=== PATIENT | female | born 1975 | race Caucasian/White ===

== ENCOUNTER → 2016-08-01 | Outpatient (REF) | payer OTHER | LOC: M LAB REF 12:58 | PROVIDERS: ATTEND Obstetrics & Gynecology | DX: Z11.3 Encounter for screening for infections with a predominantly sexual mode of transmission (principal) ==

== ENCOUNTER → 2016-09-01 | Day surgery (SDC) | payer BC, OTHER ==
[~2016-09-01] VITALS: Ht 154.9 cm; Wt 88.5 kg
[~2016-09-01] MED LIST: BUPIVACAINE HCL 0.25% 10 ML VIAL As Ordered ONE; DEPA500T2 PO; GLYCOPYRROLATE INJ 0.2 MG/ML 2 ML VIAL As Ordered ONE; KETOROLAC 60 MG/2 ML VIAL (J1885) As Ordered ONE; LIDOCAINE 2% INJ 100 MG/5 ML SDV (FOR ANES.) As Ordered ONE; LR 1,000 ML IV ONE; LR 1,000 ML IV SCH; METOCLOPRAMIDE INJ 10MG/2ML VIAL (J2765) As Ordered ONE; MIDAZOLAM INJ 2 MG/2 ML VIAL (J2250) As Ordered ONE; NEOSTIGMINE 1MG/ML 5 ML SYRINGE (J2710) As Ordered ONE; OMEP40CA2 PO; ONDANSETRON 4MG/2ML VIAL (J2405) As Ordered ONE; ONDANSETRON 4MG/2ML VIAL (J2405) IV PRN; PROPOFOL 500 MG/50 ML VIAL As Ordered ONE; PROZ40CA PO; ROCURONIUM BROMIDE 50 MG/5 ML VIAL As Ordered ONE; XANA0.25 PO; dexameTHASONE 4 MG/ML 1ML VIAL (J1100) As Ordered ONE; fentaNYL 100 MCG/2 ML INJECTION (J3010) As Ordered ONE; fentaNYL 100 MCG/2 ML INJECTION (J3010) IV PRN
[2016-09-01 08:55] LABS: MEAN CORPUSCULAR HEMOGLOBIN 29.6 pg (27.0-33.0); MEAN CORPUSCULAR VOLUME 87.1 fl (80.0-96.0); RED CELL DISTRIBUTION WIDTH 14.1 % (11.5-14.5)
[2016-09-01 09:07] LABS: CONTROL LINE HCG INT CTR LINE PRESENT
[2016-09-01] MEDS: SILVER NITRATE APPLICATOR As Ordered ONE ×2 (10:45→11:41)
[2016-09-01 14:05] VITALS: BP 138/83
--- NOTE | 2016-09-03 09:18 | RO ---
DATE OF PROCEDURE: 09/01/2016 PREOPERATIVE DIAGNOSIS: Satisfied parity. POSTOPERATIVE DIAGNOSIS: Satisfied parity. PROCEDURE PERFORMED: Laparoscopic bilateral salpingectomy. SURGEON: Dr. Indio Turcios DO FACOG PROMOTIONAL MARKETING ANALYST: AARTI Torres III ANESTHESIA: General endotracheal. SPECIMENS SENT TO PATHOLOGY: Right and left fallopian tubes. ESTIMATED BLOOD LOSS: Less than 5 mL. FLUIDS REPLACED: 1700 mL lactated Ringers. DRAINS: Buckner catheter. URINE OUTPUT: 200 mL. COMPLICATIONS: None. PREOPERATIVE ANTIBIOTICS: None indicated. INTRAOPERATIVE FINDINGS: 1. 2 cm right ovarian cyst, possibly hemorrhagic. 2. 2 cm fundal subserosal leiomyoma. 3. Normal appearing left adnexa. 4. Normal appearing right and left ovaries. INDICATION: The patient is a 40-year-old who has expressed 100% satisfied parity and requesting of permanent tubal sterilization. We reviewed all the options of control to include long-acting reversible contraception. She still wants to proceed with permanent sterilization. She has elected to proceed with laparoscopic bilateral salpingectomy after reviewing surgical options. PROCEDURE: The patient was counseled and consented on the risks, benefits, indications and alternatives to the procedure. Informed consent was obtained. She was taken to the operating room with an IV running and placed on the operating table in the dorsal supine position. General anesthesia was administered and the airway secured without any difficulty. She was then placed in the low lithotomy position. She was prepared and draped in the normal sterile fashion. A time-out was performed per protocol. Buckner catheter was placed under sterile conditions. A sterile speculum was placed in the vagina with good visualization of the cervix. The anterior lip of the cervix was grasped with a single-tooth tenaculum and downward traction was applied. The [facility] uterine manipulator was placed in typical fashion. The sterile speculum was removed. A glove switch was performed. Attention was turned to the abdomen. Approximately 5 mL of 0.25% Marcaine were injected into the umbilicus. An 8 mm umbilical incision was made with the 11 blade. Through this incision, a Veress needle was placed into the intraperitoneal cavity. Intraperitoneal placement was confirmed with ease of flow of normal saline, no return on aspiration and a positive drop test. The opening pressure was 3 mmHg. The abdomen was then insufflated with 2 liters of gas. The Veress needle was removed. The size 5 mm Feura Bush laparoscopic trocar was placed throught the 8mm incision into the intraperitoneal cavity under direct technique and intraperitoneal placement was confirmed. No additional bleeding or incidental injury was noted. The patient was then placed in Trendelenburg. On the left lower abdomen, a 5 mm incision was made. Through this 5 mm incision, a 5 mm Feura Bush laparoscopic trocar was placed under direct laparoscopic visualization. Once this was performed, the 5 mm umbilical cannula was removed. This was replaced with an 8 mm Feura Bush trocar/cannula and this was placed under direct laparoscopic visualization by placing the 5 mm scope in the left side port. Once these two ports were created, a third port was placed approximately 6-7 cm above the left lower abdomen incision. Another 5 mm incision was made and a 5 mm Feura Bush trocar was placed under direct laparoscopic visualization. No incidental injury or bleeding was noted. With the 0 scope now in the umbilical cannula, attention was turned to performing the bilateral salpingectomy. The right fallopian tube was followed out to the fimbriated end and grasped with an atraumatic grasper and elevated. The 5 mm LigaSure device was used to sequentially clamp, coagulate and transect the right underlying mesosalpinx/broad ligament to the level of the isthmus. At the level isthmus, the fallopian tube was clamped, coagulated and transected with the LigaSure device. The right fallopian tube was placed into the posterior cul-de-sac. Attention was turned to the left fallopian tube. The left fallopian tube was grasped with an atraumatic grasper at the fimbriated end and elevated. The underlying left mesosalpinx/left broad ligament was sequentially clamped, coagulated and transected until the level of the isthmus was reached. At the level of the isthmus, the fallopian tube was clamped, coagulated and transected, thus amputating the left fallopian tube. The left fallopian tube was placed in the posterior cul-de-sac. The 5 mm 0 degree scope was placed in the left sided port. The atraumatic grasper was placed in the 8 mm cannula. The right and left fallopian tubes were removed through the 8 mm cannula. Both fallopian tubes were sent to pathology for permanent section. Excellent hemostasis was noted throughout the abdomen and pelvis. The gas was released from the abdomen. As the gas was being released from the abdomen, no additional bleeding was noted. The cannulas were removed. The skin incisions were closed with #4-0 Monocryl in subcuticular fashion and reinforced with Dermabond. All instruments from the vagina were removed. The Buckner catheter was removed. Sponge, lap, needle and sponge counts were correct. The patient tolerated the entire procedure well. She was transferred to the postanesthesia care unit (PACU) in good and stable condition. KOURTNEY
== END | disposition home or self-care (01) ==
LOC: M SDC 08:05
PROVIDERS: ATTEND Obstetrics & Gynecology
DX: Z30.2 Encounter for sterilization (principal); N83.201 Unspecified ovarian cyst, right side; D25.2 Subserosal leiomyoma of uterus; K21.9 Gastro-esophageal reflux disease without esophagitis; F41.9 Anxiety disorder, unspecified; F32.9 Major depressive disorder, single episode, unspecified; G43.909 Migraine, unspecified, not intractable, without status migrainosus; F17.290 Nicotine dependence, other tobacco product, uncomplicated; Z79.899 Other long term (current) drug therapy; Z88.8 Allergy status to other drugs, medicaments and biological substances
CPT/HCPCS: 36415; 58661; 84703; 85027; 86850; 86900; 86901; 88302; J1100; J1885; J2250; J2405; J2710; J2765; J3010

== ENCOUNTER → 2017-09-03 | Outpatient (CLI) | payer BC, OTHER | LOC: M WUC 09:17 | DX: M79.661 Pain in right lower leg (principal) | CPT/HCPCS: 73590 ==

== ENCOUNTER → 2017-11-08 | Outpatient (REF) | payer BC, OTHER ==
[2017-11-09 11:27] LABS: CHLAMYDIA DNA AMPLIFICATION NEGATIVE (NEGATIVE); GC DNA AMPLIFICATION NEGATIVE (NEGATIVE)
[2017-11-13 14:20] LABS: HPV LOW VOL RFLX Negative (Negative)
== END ==
LOC: M LAB REF 13:26
DX: Z11.3 Encounter for screening for infections with a predominantly sexual mode of transmission (principal)

== ENCOUNTER 2017-12-13 22:22 | Inpatient (IN) | payer OTHER ==
[2017-12-13 22:55] LABS: BASO % 0.3 % (0.0-1.0); EOS # 0.1 10^3/uL (0.0-0.50); EOS % 0.6 % (0.0-3.0); HEMATOCRIT 38.6 % (36.0-47.0); HEMOGLOBIN 13.2 g/dl (12.0-15.5); IMMATURE GRANULOCYTE % 0.1 % (0-3.0); LYMPH # 2.7 10^3/uL (1.5-4.5); LYMPH % 34.5 % (24.0-44.0); MEAN CORPUSCULAR HEMOGLOBIN 28.9 pg (27.0-33.0); MEAN CORPUSCULAR HGB CONC 34.2 g/dl (32.0-36.5); MEAN CORPUSCULAR VOLUME 84.5 fl (80.0-96.0); MONO # 0.6 10^3/uL (0.0-0.8); MONO % 7.6 % (0.0-5.0); NEUTROPHILS # 4.4 10^3/uL (1.8-7.7); NEUTROPHILS % 56.9 % (36.0-66.0); PLATELET COUNT, AUTOMATED 230 10^3/uL (150-450); RED BLOOD COUNT 4.57 10^6/uL (4.00-5.40); RED CELL DISTRIBUTION WIDTH 13.7 % (11.5-14.5); WHITE BLOOD COUNT 7.8 10^3/uL (4.0-10.0)
[2017-12-13 23:21] LABS: ALBUMIN 3.6 GM/DL (3.2-5.2); ALBUMIN/GLOBULIN RATIO 0.78 (1.00-1.93); ALKALINE PHOSPHATASE 69 U/L (45-117); ALT/SGPT 27 U/L (12-78); ANION GAP 9 MEQ/L (8-16); AST/SGOT 17 U/L (7-37); BILIRUBIN,DIRECT < 0.1 MG/DL (0.0-0.2); BILIRUBIN,TOTAL 0.2 MG/DL (0.2-1.0); BLOOD UREA NITROGEN 19 MG/DL (7-18); CALCIUM LEVEL 8.4 MG/DL (8.5-10.1); CARBON DIOXIDE LEVEL 24 MEQ/L (21-32); CHLORIDE LEVEL 108 MEQ/L (98-107); CPK CREATINE PHOSPHOKINASE 68 U/L (26-192); CREATININE FOR GFR 0.92 MG/DL (0.55-1.30); ETHYL ALCOHOL (ETHANOL) 0.004 % (0.000-0.010); GLOMERULAR FILTRATION RATE > 60.0 (>58); GLUCOSE, FASTING 86 MG/DL (70-100); POTASSIUM SERUM 3.7 MEQ/L (3.5-5.1); SALICYLATE LEVEL 4.5 MG/DL (5.0-30.0); SODIUM LEVEL 141 MEQ/L (136-145); TOTAL PROTEIN 8.2 GM/DL (6.4-8.2)
[2017-12-13 23:22] LABS: ACETAMINOPHEN LEVEL < 2.0 UG/ML (10.0-30.0)
[2017-12-14 05:17] LABS: AMPHETAMINES LEVEL URINE NEGATIVE (NEGATIVE); BARBITURATES URINE NEGATIVE (NEGATIVE); BENZODIAZEPINES URINE POSITIVE (NEGATIVE); CANNABINOIDS URINE POSITIVE (NEGATIVE); COCAINE METABOLITE URINE NEGATIVE (NEGATIVE); METHADONE URINE NEGATIVE (NEGATIVE); OPIATES URINE NEGATIVE (NEGATIVE); PHENCYCLIDINE URINE NEGATIVE (NEGATIVE)
[2017-12-14] MEDS ORDERED: MOM 30ML SUSPENSION UDC PO (06:15)
[2017-12-14] MEDS ORDERED: MAALOX 30 ML SUSP *UDC PO (06:15)
[2017-12-14] MEDS ORDERED: ACETAMINOPHEN TAB 650MG DOSE (2X325MG) PO (06:15)
[2017-12-14 11:24] LABS: CONTROL LINE HCG INT CTR LINE PRESENT; HCG, SERUM QUALITATIVE NEGATIVE (NEGATIVE)
[2017-12-14] MEDS: FLUoxetine 20 MG CAP PO ×2 (12:26→20:45)
[2017-12-14] MEDS: DIVALPROEX 500MG *ER* TAB PO (12:26)
[2017-12-14 14:01] LABS: VALPROIC ACID (DEPAKOTE) 37.9 UG/ML (50.0-100.0)
[2017-12-14] MEDS: OMEPRAZOLE 20 MG CAP PO (20:45)
[2017-12-14] MEDS: traZODone 50 MG TAB PO (20:45)
[2017-12-15] MEDS: FLUoxetine 20 MG CAP PO (08:01)
[2017-12-15] MEDS: DIVALPROEX 500MG *ER* TAB PO ×2 (08:01→21:16)
[2017-12-15] MEDS: OMEPRAZOLE 20 MG CAP PO (21:16)
[2017-12-15] MEDS: traZODone 50 MG TAB PO (21:16)
[2017-12-16 08:02] LABS: VALPROIC ACID (DEPAKOTE) 51.7 UG/ML (50.0-100.0)
[2017-12-16] MEDS: FLUoxetine 20 MG CAP PO (08:13)
[2017-12-16] MEDS: traZODone 50 MG TAB PO (21:50)
[2017-12-16] MEDS: OMEPRAZOLE 20 MG CAP PO (21:50)
[2017-12-16] MEDS: DIVALPROEX 500MG *ER* TAB PO (21:50)
[2017-12-17 07:29] LABS: VALPROIC ACID (DEPAKOTE) 36.5 UG/ML (50.0-100.0)
[2017-12-17] MEDS: FLUoxetine 20 MG CAP PO (08:00)
[2017-12-17] MEDS ORDERED: PILL CRUSHER/CUTTER 1 EACH XX (13:45)
[2017-12-17] MEDS: RIZATRIPTAN BENZOATE 10 MG TAB PO (14:34)
[2017-12-17] MEDS: OMEPRAZOLE 20 MG CAP PO (20:55)
[2017-12-17] MEDS: DIVALPROEX 500MG *ER* TAB PO (20:55)
[2017-12-17] MEDS: traZODone 50 MG TAB PO (22:42)
[2017-12-18] MEDS: FLUoxetine 20 MG CAP PO (08:03)
[2017-12-18] MEDS: RIZATRIPTAN BENZOATE 10 MG TAB PO ×2 (08:04→11:02)
== END 2017-12-18 14:10 | disposition home or self-care (01) | DRG 885 ==
LOC: M ED INP 12-14 06:08 → M ED 22:22 → M PSY 12-14 09:05
DX: F31.30 Bipolar disorder, current episode depressed, mild or moderate severity, unspecified (principal); Z91.5 Personal history of self-harm; Z79.899 Other long term (current) drug therapy; Z88.8 Allergy status to other drugs, medicaments and biological substances; K21.9 Gastro-esophageal reflux disease without esophagitis; Z90.49 Acquired absence of other specified parts of digestive tract; Z98.51 Tubal ligation status; F17.210 Nicotine dependence, cigarettes, uncomplicated

== ENCOUNTER → 2018-07-31 | Outpatient (CLI) | payer BC, OTHER ==
[~2018-07-31] MED LIST changes: +ALPR1TAB3 PO; -BUPIVACAINE HCL 0.25% 10 ML VIAL As Ordered ONE; +EXCE38TA PO; +FLUO20CA19 PO; +FLUO20TA28 PO; -GLYCOPYRROLATE INJ 0.2 MG/ML 2 ML VIAL As Ordered ONE; -KETOROLAC 60 MG/2 ML VIAL (J1885) As Ordered ONE; -LIDOCAINE 2% INJ 100 MG/5 ML SDV (FOR ANES.) As Ordered ONE; -LR 1,000 ML IV ONE; -LR 1,000 ML IV SCH; -METOCLOPRAMIDE INJ 10MG/2ML VIAL (J2765) As Ordered ONE; -MIDAZOLAM INJ 2 MG/2 ML VIAL (J2250) As Ordered ONE; -NEOSTIGMINE 1MG/ML 5 ML SYRINGE (J2710) As Ordered ONE; -ONDANSETRON 4MG/2ML VIAL (J2405) As Ordered ONE; -ONDANSETRON 4MG/2ML VIAL (J2405) IV PRN; -PROPOFOL 500 MG/50 ML VIAL As Ordered ONE; -ROCURONIUM BROMIDE 50 MG/5 ML VIAL As Ordered ONE; -dexameTHASONE 4 MG/ML 1ML VIAL (J1100) As Ordered ONE; -fentaNYL 100 MCG/2 ML INJECTION (J3010) As Ordered ONE; -fentaNYL 100 MCG/2 ML INJECTION (J3010) IV PRN
--- NOTE | 2018-08-01 06:23 | REP ---
Clinical: Hirsutism. Technique: Transabdominal pelvic ultrasound followed by transvaginal examination for better evaluation of the endometrium and adnexa. Findings: Bladder is unremarkable and measures 12.7 x 7.3 x 9.7 cm . Normal anteverted uterus measures 8.5 x 4.4 x 4.8 cm . The endometrial complex measures 9.5 mm thickness. No discrete uterine or endometrial abnormalities are appreciated. Bilateral ovaries are normal in appearance. Right ovary measures 2.4 x 1.8 x 2.4 cm ; Left ovary measures 3.4 x 2.2 x 2.9 cm. No pelvic fluid or adnexal mass lesion . Impression: 1. Normal pelvic ultrasound. Electronically Signed by Braulio Price MD 08/01/2018 06:15 A
== END ==
LOC: M RAD 12:03
PROVIDERS: ATTEND Family Medicine
DX: L68.0 Hirsutism (principal)

== ENCOUNTER → 2018-10-30 | Outpatient (CLI) | payer BC, OTHER ==
[~2018-10-30] MED LIST changes: +ESCI10TA2 PO; +HYDR200T3 PO; +MAGN1CAP PO; +MELA10TA6 PO; +TOPI100T9 PO; +TOPI50TA9 PO
--- NOTE | 2018-10-30 22:36 | REP ---
Clinical: Lower back pain . Technique: AP, lateral, flexion/extension, bilateral oblique, and coned-down views. Findings: Alignment and lordosis is maintained. The vertebral bodies including transverse process and spinous processes are intact and normal. There is no evidence for acute fracture / compression injury or subluxation. No evidence for spondylolysis or spondylolisthesis. No significant degenerative change is noted. Impression: Normal lumbosacral spine radiograph series. Electronically Signed by Braulio Price MD 10/30/2018 10:28 P
== END ==
LOC: M ADAMS 09:29
PROVIDERS: ATTEND Family Medicine
DX: M54.5 Low back pain (principal)

== ENCOUNTER → 2020-03-09 | Outpatient (CLI) | payer BC ==
[~2020-03-09] MED LIST changes: -FLUO20CA19 PO; +FLUO20CA22 PO; -OMEP40CA2 PO; +OMEP40CA97 PO
--- NOTE | 2020-03-10 04:45 | REP ---
INDICATION: N93.9 AUB COMPARISON: 07/31/2018 TECHNIQUE: Transabdominal pelvic ultrasound followed by transvaginal examination for better evaluation of the endometrium and adnexa with color evaluation of the ovaries. FINDINGS: Bladder is unremarkable and measures 13.1 x 5.7 x 8.9 cm. Normal anteverted uterus measures 8.7 x 4.2 x 5.0 cm. The endometrial complex measures 9.8 mm thickness. No discrete uterine or endometrial abnormalities are appreciated. Bilateral ovaries are normal in vascularity without evidence for torsion. Right ovary measures 5.8 x 3.3 x 3.1 cm and includes 3.1 and 3.4 cm simple appearing cysts. Left ovary measures 3.2 x 2.1 x 2.0 cm and includes 1.8 cm simple appearing cyst. No pelvic fluid or adnexal mass lesion. IMPRESSION: Essentially normal appearance to the uterus. Ovarian cysts appear simple/benign as described above. <Electronically signed by Braulio Price > 03/10/20 0446
== END ==
LOC: M WHC 10:59
PROVIDERS: ATTEND Obstetrics & Gynecology
DX: N93.9 Abnormal uterine and vaginal bleeding, unspecified (principal); N83.201 Unspecified ovarian cyst, right side; N83.202 Unspecified ovarian cyst, left side

== ENCOUNTER → 2020-04-30 | Outpatient (CLI) | payer BC | LOC: M LABSMTC 09:39 | PROVIDERS: ATTEND Anesthesiology | DX: Z01.812 Encounter for preprocedural laboratory examination (principal); Z20.822 Contact with and (suspected) exposure to COVID-19 ==

== ENCOUNTER → 2020-04-30 | Outpatient (REF) | payer OTHER ==
[~2020-04-30] MED LIST changes: +DOK1CAP7 PO; +IBUP80TA PO; +MAXA10TA14 PO; +PERCOCET PO
== END ==
LOC: M SFHCWAGY 17:06
PROVIDERS: ATTEND Obstetrics & Gynecology
DX: N93.9 Abnormal uterine and vaginal bleeding, unspecified (principal)

== ENCOUNTER → 2020-05-03 | Outpatient (CLI) | payer BC, OTHER ==
[~2020-05-03] MED LIST changes: +ESCI10TA16 PO; -ESCI10TA2 PO
--- NOTE | 2020-05-03 18:46 | ECGEPIP ---
[facility] [place] Test Date: 2020-05-03 Pat Name: FERMÍN MENDOZA Department: Room: - Gender: Female Owner/Photographer: JENNIFER : 1975 Requested By: Luke Mccollum Order Number: [id number] Reading MD: Alexander Laurent Measurements Intervals [place] Rate: 70 P: 55 AL: 162 QRS: 70 QRSD: 94 T: 44 QT: 396 QTc: 429 Interpretive Statements SINUS RHYTHM COMPARED TO 12/14/17 POOR R WAVE PROGRESSION IS NO LONGER PRESENT - VS DUE TO LEAD P PLACEMENT Electronically Signed on 05-03-2020 18:46:22 EST by Alexander Laurent
== END ==
LOC: M EKG 10:40
PROVIDERS: ATTEND Anesthesiology
DX: Z01.818 Encounter for other preprocedural examination (principal)

== ENCOUNTER 2020-05-05 07:52 | Day surgery (SDC) | payer BC, OTHER ==
[2020-05-05] VITALS (8 sets, daily range): BP systolic 109–166; BP diastolic 68–101
[~2020-05-05] VITALS: Ht 154.9 cm; Wt 96.8 kg
[~2020-05-05 07:52] MED LIST changes: -DOK1CAP7 PO; -IBUP80TA PO; +LIDOCAINE 1% MDV 20ML VIAL SQ PRN; +LR 1,000 ML IV ONE; -MAXA10TA14 PO; -PERCOCET PO; +ceFAZolin SOD 2 GM in IV 1 EA IV ONE
[2020-05-05] MEDS ORDERED: fentaNYL 100 MCG/2 ML INJECTION (J3010) As Ordered ONE (07:55)
--- OUTSIDE RECORDS SUMMARY | 2020-05-05 07:56 | CCD ---
Author Author [facility] em[facility] Organization [facility] ems Address Unknown Phone Unavailable Care Team Providers Care Librarian Name Role Phone Ne Tee Unavailable PROBLEMS Type Condition ICD9-CM Code [id number] Code Onset Dates Condition S tatus SNOMED Code Notes Problem Migraine with aura and without status migrainosu s, not intractable G43.109 Active 9126601 Problem Cigarette nicotine dependence without complication F17.210 Active 59565086 Problem Cutaneous lupus erythematosus L93.2 Active 71 42780 Problem Subacute cutaneous lupus erythematosus L93.1 A ctive 324226305 Problem GERD without esophagitis K21.9 Active 1911529 05 Problem Lupus M32.9 Active 306811450 Problem Mixed hyperlipidemia E78.2 Active 002454011 Problem Abnormal uterine bleeding (AUB) N93.9 Active 16357191404352 Problem Bipolar affective disorder, remission status unspecified F31.9 Active 56659667 Problem GERD with esophagitis K21.0 Active 119396694 Problem Systemic lupus erythematosus , unspecified SLE type, unspecified organ involvement status M32.9 Active 01746325 Problem Fibromyalgia M79.7 Active 722633864 Problem Other chronic pain G89.29 Active 27208950 ALLERGIES Allergen (clinical drug ingredient) Drug/Non Drug Allergy do cumented on EMR Reaction Allergy Type Onset Date Status Lamisil Hives Drug Allergy Active ENCOUNTERS from 1975 to 2020-03-29 Encounter Location Date Provider Diagnosis [facility] [address] [place] [address] Mar, Ne Vandana-Tartell IMMUNIZATIONS Vaccine Route Administration Date Status TDAP 0.5mL (Boostrix) IM Intramuscular Apr 10, 2018 Administe red Influenza (6mo & up) Fluzone IM Intramuscular Feb 20, 2018 Ad ministered SOCIAL HISTORY Tobacco Use: Social History Observation Description Date Details (start date - stop date) Former Smoker Sex Assigned At : Social History Observation Description Sex Assigned At Unknown Education: Question Answer Notes Level of Education: Not Finished College Audit Question Answer Notes Total Score: 0 Interpretation: Alcohol Education Language: Question Answer Notes Languages spoken: Micronesian Latter-Day: Question Answer Notes Latter-Day 21 Hoahaoism Drug and Alcohol Question Answer Notes Total Score: 0 Interpretation: No problems reported Tobacco Use: Question Answer Notes Are you a: former smoker How long has it been since you last smoked? < 1 month REASON FOR REFERRAL No Information VITAL SIGNS No information MEDICATIONS Medication SIG (Take, Route, Frequency, Duration) Notes Start Da te End Date Status Melatonin 3 MG 3 capsule at bedtime as needed Orally Once a day Active Rizatriptan Benzoate 5 MG 1 tab po Oral daily prn headache for 30 Active Melatonin 3 MG 3 tabs Orally Daily A ctive Hydroxychloroquine Sulfate 200 MG 1 tab Oral twice daily Active Omeprazole 20 MG 1 cap Oral Daily for 90 Active Escitalopram Oxalate 10 MG 1 1/2 tabs Oral Once a day Active Vitamin D 1000 UNIT 1 tablet Orally Once a day Not-Taking Topiramate 100 MG 1 Am,1 PM Orally twice daily Active Magnesium 400 MG as directed Orally Active PROCEDURES No Information RESULTS No Results REASON FOR VISIT omeprazole - 90 day MEDICAL (GENERAL) HISTORY Type Description Date Medical History migraines Medical History GERD Medical History vitamin D deficiency Medical History Raynaud's phenomenon Medical History Depression/ Anxiety Medical History Lupus Medical History PCOS Medical History fibromyalgia Surgical History gallbladder 2014 Surgical History tubal 2017 Hospitalization History surgery Hospitalization History [facility] 8-18 Goals Section No Information Health Concerns No Information MEDICAL EQUIPMENT No Information MENTAL STATUS No Information FUNCTIONAL STATUS No Information ASSESSMENTS No Information PLAN OF TREATMENT Medication Medication Name Sig Start Date Stop Date Omeprazole 20 MG 1 cap Oral Daily for 90 Next Appt Details Provider Name:Ne Tee, 2020-04-07 03:30:00 PM, [address], [phone], Provider Name:Indio Turcios, 01:20:00 PM, [address] [place], [address], Provider Name:Indio Turcios, 07:30:00 AM, [address] [place] [address], [phone], Provider Name:Indio Turcios, 11:20:00 AM, [address] [place] [address], [phone], Provider Name:Indio Turcios, 11:20:00 AM, [address] [place] [address], [phone], Insurance Providers Payer Name Payer Address Payer Phone Insured Name Patient Relati onship to Insured Coverage Start Date Coverage End Date [facility] [address] [facility] [id number] FERMÍN MENDOZA [id number]
--- OUTSIDE RECORDS SUMMARY | 2020-05-05 07:56 | CCD ---
Author Author [facility] Organization [facility] Address Unknown Phone Unavailable Care Team Providers Care Farm Laborer Name Role Phone Ne Tee Unavailable PROBLEMS Type Condition ICD9-CM Code [id number] Code Onset Dates Condition S tatus SNOMED Code Notes Problem Cigarette nicotine dependence without complication F17.210 Active 57489631 Problem Migraine with aura and without status migrainosu s, not intractable G43.109 Active 1155919 Problem Mixed hyperlipidemia E78.2 Active 451763537 Problem Bipolar affective disorder, remission status unspecified F31.9 Active 26395036 Problem GERD without esophagitis K21.9 Active 9919692 05 Problem GERD with esophagitis K21.0 Active 111838366 Problem Fibromyalgia M79.7 Active 256204303 Problem Cigarette nicotine dependence in remission F17.211 Active 149691299 Problem Cutaneous lupus erythematosus L93.2 Active 71 18321 Problem Vitamin D deficiency E55.9 Active 58916494 Problem Subacute cutaneous lupus erythematosus L93.1 A ctive 608858002 Problem Other chronic pain G89.29 Active 19827435 Problem Systemic lupus erythematosus , unspecified SLE type, unspecified organ involvement status M32.9 Active 02744623 Problem Lupus M32.9 Active 768127362 Problem Abnormal uterine bleeding (AUB) N93.9 Active 59329172171926 ALLERGIES Allergen (clinical drug ingredient) Drug/Non Drug Allergy do cumented on EMR Reaction Allergy Type Onset Date Status Lamisil Hives Drug Allergy Active ENCOUNTERS from 1975 to 2020-04-30 Encounter Location Date Provider Diagnosis [facility] [address] [place] [address] Apr, Ne Vandana-Tartell IMMUNIZATIONS Vaccine Route Administration Date [...] Education Language: Question Answer Notes Languages spoken: Hong Konger Spiritism: Question Answer Notes Spiritism 21 Alevism Drug and Alcohol Question Answer Notes Total Score: 0 Interpretation: No problems reported Tobacco Use: Question Answer Notes Are you a: former smoker How long has it been since you last smoked? < 1 month REASON FOR REFERRAL No Information VITAL SIGNS No information MEDICATIONS Medication SIG (Take, Route, Frequency, Duration) Notes Start Da te End Date Status Magnesium 400 MG as directed Orally Active Topiramate 100 MG 1 Am,1 PM Orally twice daily Active Omeprazole 20 MG 1 cap Oral Daily for 90 Active Rizatriptan Benzoate 5 MG 1 tab po Oral daily prn headache for 30 Active Hydroxychloroquine Sulfate 200 MG 1 tab Oral twice daily for 90 days Active Vitamin D 1000 UNIT 1 tablet Orally Once a day for 90 days Active Escitalopram Oxalate 10 MG 1 1/2 tabs Oral Once a day Active Melatonin 3 MG 3 tabs Orally Daily A ctive PROCEDURES No Information RESULTS No Results REASON FOR VISIT stop med before surgery? MEDICAL (GENERAL) HISTORY Type Description Date Medical History migraines Medical History GERD Medical History vitamin D deficiency Medical History Raynaud's phenomenon Medical History Depression/ Anxiety Medical History Lupus Medical History PCOS Medical History fibromyalgia Surgical History gallbladder 2014 Surgical History tubal 2017 Hospitalization History surgery Hospitalization History [facility] 8-18 Goals Section No Information Health Concerns No Information MEDICAL EQUIPMENT No Information MENTAL STATUS No Information FUNCTIONAL STATUS No Information ASSESSMENTS No Information PLAN OF TREATMENT Medication Medication Name Sig Start Date Stop Date Hydroxychloroquine Sulfate 200 MG 1 tab Oral twice daily for 90 days Vitamin D 1000 UNIT 1 tablet Orally Once a day for 90 days Omeprazole 20 MG 1 cap Oral Daily for 90 Next Appt Details Provider Name:Indio Turcios, 2020-04- 01:20:00 PM, [address] [place], [address], Provider Name:Indio Turcios, 09:30:00 AM, [address] [place] [address], [address], Provider Name:Indio Turcios, 11:20:00 AM, [address] [place] [address], [phone], Provider Name:Indio Turcios, 11:20:00 AM, [address] [place] [address], [phone], Insurance Providers Payer Name Payer Address Payer Phone Insured Name Patient Relati onship to Insured Coverage Start Date Coverage End Date [facility] [address] [facility] [id number] FERMÍN MENDOZA [id number]
--- OUTSIDE RECORDS SUMMARY | 2020-05-05 07:56 | CCD ---
Author Author [facility] Organization [facility] Address Unknown Phone Unavailable Care Team Providers Care Fabric Coating Supervisor Name Role Phone Ne Tee Unavailable PROBLEMS Type Condition ICD9-CM Code [id number] Code Onset Dates Condition S tatus SNOMED Code Notes Problem Cigarette nicotine dependence without complication F17.210 Active 15971000 Problem Migraine with aura and without status migrainosu s, not intractable G43.109 Active 1536082 Problem Mixed hyperlipidemia E78.2 Active 074702168 Problem Bipolar affective disorder, remission status unspecified F31.9 Active 16091955 Problem GERD without esophagitis K21.9 Active 7166636 05 Problem GERD with esophagitis K21.0 Active 212032505 Problem Fibromyalgia M79.7 Active 474625533 Problem Cigarette nicotine dependence in remission F17.211 Active 772055216 Problem Cutaneous lupus erythematosus L93.2 Active 71 14737 Problem Vitamin D deficiency E55.9 Active 18302000 Problem Subacute cutaneous lupus erythematosus L93.1 A ctive 346518622 Problem Other chronic pain G89.29 Active 35273758 Problem Systemic lupus erythematosus , unspecified SLE type, unspecified organ involvement status M32.9 Active 50798243 Problem Lupus M32.9 Active 326346398 Problem Abnormal uterine bleeding (AUB) N93.9 Active 46419766015154 ALLERGIES Allergen (clinical drug ingredient) Drug/Non Drug Allergy do cumented on EMR Reaction Allergy Type Onset Date Status Lamisil Hives Drug Allergy Active ENCOUNTERS from 1975 to 2020-04-26 Encounter Location Date Provider Diagnosis [facility] [address] [place] [address] 16 Dec, 20 20 Ne Vandana-Tartell Vitamin D deficiency E55.9 ; Cutaneous l upus erythematosus L93.2 and Cigarette nicotine dependence in remission F17.211 IMMUNIZATIONS Vaccine Route Administration Date Status TDAP [...] Education Language: Question Answer Notes Languages spoken: Icelandic Restorationism: Question Answer Notes Restorationism 21 Sabianist Drug and Alcohol Question Answer Notes Total [...] Information RESULTS No Results REASON FOR VISIT 6 month MEDICAL (GENERAL) HISTORY Type Description Date Medical History migraines Medical History GERD Medical History vitamin D deficiency Medical History Raynaud's phenomenon Medical History Depression/ Anxiety Medical History Lupus Medical History PCOS Medical History fibromyalgia Surgical History gallbladder 2014 Surgical History tubal 2017 Hospitalization History surgery Hospitalization History [facility] 8-18 Goals Section No Information Health Concerns No Information MEDICAL EQUIPMENT No Information MENTAL STATUS No Information FUNCTIONAL STATUS No Information ASSESSMENTS Encounter Date Diagnosis Assessment Notes Treatment Notes Treatm ent Clinical Notes Mar, Vitamin D deficiency (ICD-10 - E55.9) Vitamin D refilled. Mar, Cutaneous lupus erythematosus (ICD-10 - L93.2) We will cover her Rx until she sees dermatology. Mar, Cigarette nicotine dependence in remission (ICD- 10 - F17.211) Congratulated her on smoking cessation PLAN OF TREATMENT Medication Medication Name Sig Start Date Stop Date Hydroxychloroquine Sulfate 200 MG 1 tab Oral twice daily for 90 days Vitamin D 1000 UNIT 1 tablet Orally Once a day for 90 days Omeprazole 20 MG 1 cap Oral Daily for 90 Treatment Notes Assessment Notes Clinical Notes Vitamin D deficiency Vitamin D refilled. Cutaneous lupus erythematosus We will co flor her Rx until she sees dermatology. Cigarette nicotine dependence in remission Congratulated her on smoking cessation Next Appt Details 6 Months Reason:f/u Provider Name:Indio Turcios, 01:20:00 PM, [address] [place] [address], [phone], Provider Name:Indio Turcios, 07:30:00 AM, [address] [place] [address], [phone], Provider Name:Indio Turcios, 11:20:00 AM, [address] [place] [address], [phone], Provider Name:Indio Turcios, 11:20:00 AM, [address] [place] [address], [phone], Follow Up:6 Monthsf/u Insurance Providers Payer Name Payer Address Payer Phone Insured Name Patient Relati onship to Insured Coverage Start Date Coverage End Date [facility] [address] [facility] [id number] FERMÍN MENDOZA [id number]
--- OUTSIDE RECORDS SUMMARY | 2020-05-05 07:57 | CCD | Continuity of Care Document ---
Author Author Jelena STRONG PAAnuC Organization Unknown Address [facility] [address] [place] [address] Phone [phone] Problems Description No Information Available Social History Type Date Description Comments Sex Unknown Allergies, Adverse Reactions, Alerts Active Allergies Reaction Severity Comments Date Lamisil 05/30/2018 NKFA 05/30/2018 NKEA 05/30/2018 Medications Active Medications SIG Qnty Indications Ordering Provide r Date Escitalopram Oxalate 20mg Tablets 1 tab by mouth every day 90tabs F32.89 Chetan Baker MD 02/16/2020 Topiramate 100mg Tablets 1 tab by mouth twice a day at bedtime 180tabs F32.89 Chetan Baker MD 04/2018 Nifedipine ER 30mg Tablets ER 24HR TK 1 T PO qd For Raynaud Phenomenon Unknown Rizatriptan Benzoate 5mg Tablets D ispers Dis 1 T On The Tongue D PRF Lamar Unknown 0 Alclometasone Dipropionate 0.05% C ream Apply A Small Amount To Rash On Face bid For Up To 10 Days as Needed Unknown Metronidazole 0.75% Cream Apply A Small Amount To Full Face Once Daily For Redness Unkn own Omeprazole 20mg Capsules TK 1 C PO bid Unknown Vitamin D 1000Unit Tablets Unknown Immunizations Description No Information Available Vital Signs Date Vital Result Comment 05/30/2018 8:55am BP Systolic Sitting 166 mmHg BP Diastolic Sitting 108 mmHg Heart Rate 107 /min Body Temperature 98.3 F Oral Respiratory Rate 18 /min O2 % BldC Oximetry 99 % Weight 213.12 lb Weight 96.674 kg Height 61.5 inches 5'1.50" BMI (Body Mass Index) 39.6 kg/m2 BSA (Body Surface Area) 1.95 m2 Results Description No Information Available Procedures Date Code Description Status 01/14/2020 46589 Psychiatric Diagnostic Evaluatio n Completed Medical Devices Description No Information Available Encounters Description No Information Available Assessments Date Code Description Provider 02/16/2020 F32.89 Other specified depressive episo marylu Viet Strong, PA-C 02/16/2020 F41.8 Other specified anxiety disorder s Viet Strong, PA-C 02/13/2020 F32.89 Other specified depressive episo marylu Peggy Emelia, [facility] 02/13/2020 F41.8 Other specified anxiety disorder s Peggy Emelia, HC 01/15/2020 F32.89 Other specified depressive episo marylu Viet Strong, PA-C 01/15/2020 F41.8 Other specified anxiety disorder s Viet Strong, PA-C 01/14/2020 F32.89 Other specified depressive episo marylu Epggy [place], [facility] 01/14/2020 F41.8 Other specified anxiety disorder s Peggy Emelia, LMHC 12/30/2019 F32.89 Other specified depressive episo marylu Viet Strong, PA-C 09/29/2019 F32.89 Other specified depressive episo marylu Viet Strong, PA-C 09/01/2019 F32.89 Other specified depressive episo marylu Lesley Ingram, [employer] Plan of Treatment Future Appointment(s):* 06/14/2020 11:40 am - [facility]C [facility] * 03/16/2020 11:00 am - PeggyWENDY G[facility]mez at [facility] * 03/30/2020 11:40 am - BECKIE Russell-C at [facility] Functional Status Description No Information Available Mental Status Description No Information Available Referrals Description No Information Available
--- OUTSIDE RECORDS SUMMARY | 2020-05-05 07:57 | CCD ---
Continuity of Care Document (CCD) Created on: 03/30/2020 Jelena Robledo External Reference #: [id number] : [id number] Sex: Female Author Author Jelena STRONG PA-C Organization Unknown Address [facility] [address] [place] [address] Phone [phone] Problems Description No Information Available Social History [...] 1 tab by mouth twice a day 180tabs F32.89 Chetan Baker MD 08/21/2018 Nifedipine ER 30mg Tablets ER 24HR TK [...] Available Procedures Date Code Description Status 01/14/2020 34956 Psychiatric Diagnostic Evaluatio n Completed Medical Devices Description No Information Available Encounters Type Date Location Provider Dx Diagnosis Office Visit 03/30/2020 11:40a [facility] Viet Strong, PA-C F32.89 Other specified depressive episodes F41.8 Other specified anxiety diso rders Assessments Date Code Description Provider 03/30/2020 F32.89 Other specified depressive episo marylu Viet Strong, PA-C 03/30/2020 F41.8 Other specified anxiety disorder s Viet Strong, PA-C 03/16/2020 F32.89 Other specified depressive episo marylu Peggy Lulú, [facility] 03/16/2020 F41.8 Other specified anxiety disorder s Peggy Lulú, [facility] 02/16/2020 F32.89 Other specified depressive episo marylu Viet Strong, PA-C 02/16/2020 F41.8 Other specified anxiety disorder s Viet Strong, PA-C 02/13/2020 F32.89 Other specified depressive episo marylu Peggy [place], [facility] 02/13/2020 F41.8 Other specified anxiety disorder s Peggy Lul[place], HC 01/15/2020 F32.89 Other specified depressive episo marylu Viet Strong, PA-C 01/15/2020 F41.8 Other specified anxiety disorder s Viet Strnog, PA-C 01/14/2020 F32.89 Other specified depressive episo marylu Peggy Lul[place], [facility] 01/14/2020 F41.8 Other specified anxiety disorder s Peggy Lul[place], HC 12/30/2019 F32.89 Other specified depressive episo marylu Viet Strong, PA-C Plan of Treatment Future Appointment(s):* 06/29/2020 11:40 am - Viet Strong PA-C at [facility] * 05/14/2020 11:00 am - WENDY Wooten at [facility] * 04/13/2020 11:00 am - WENDY Wooten at [facility] * 06/14/2020 11:40 am - Viet Strong PA-C at [facility] Functional Status Description No Information Available Mental Status Description No Information Available Referrals Description No Information Available
--- OUTSIDE RECORDS SUMMARY | 2020-05-05 07:57 | CCD | Continuity of Care Document ---
Author Author Jelena SOLER [facility] Organization Unknown Address [facility] [address] [place] [address] Phone [phone] Problems Description No Information Available Social History Type Date Description Comments Sex Unknown Allergies, Adverse Reactions, Alerts Active Allergies Reaction Severity Comments Date Lamisil 05/30/2018 NKFA 05/30/2018 NKEA 05/30/2018 Medications Active Medications SIG Qnty Indications Ordering Provide r Date Escitalopram Oxalate 10mg Tablets 1 1/2 tabs by mouth every day 135tabs F32.89 Chetan Baker MD Topiramate 100mg Tablets 1 tab by mouth [...] Available Procedures Date Code Description Status 01/14/2020 93841 Psychiatric Diagnostic Evaluatio n Completed Medical Devices Description No Information Available Encounters Description No Information Available Assessments Date Code Description Provider 02/13/2020 F32.89 Other specified depressive episo marylu Peggy [place], [facility] 02/13/2020 F41.8 Other specified anxiety disorder s Peggy Emelia, [facility] 01/15/2020 F32.89 Other specified depressive episo marlyu Viet Strong, PA-C 01/15/2020 F41.8 Other specified anxiety disorder s Viet Strong, PA-C 01/14/2020 F32.89 Other specified depressive episo marylu Peggy [place], [facility] 01/14/2020 F41.8 Other specified anxiety disorder s Peggy [place], [facility] 12/30/2019 F32.89 Other specified depressive episo marylu Viet Strong, PA-C 09/29/2019 F32.89 Other specified depressive episo marylu Viet Strong, PA-C 09/01/2019 F32.89 Other specified depressive episo marylu Lesley Ingram LMSW Plan of Treatment Future Appointment(s):* 03/16/2020 11:00 am - WENDY Salomon at [facility] * 02/16/2020 10:00 am - Viet Strong PA-C at [facility] * 03/30/2020 11:40 am - BECKIE Russell-C at [facility] Functional Status Description No Information Available Mental Status Description No Information Available Referrals Description No Information Available
--- OUTSIDE RECORDS SUMMARY | 2020-05-05 07:57 | CCD | Continuity of Care Document ---
Author Author Jelena SOLER [facility] Organization Unknown Address [facility] [address] [place] [address] Phone [phone] Problems Description No Information Available Social History [...] Available Procedures Date Code Description Status 01/14/2020 89311 Psychiatric Diagnostic Evaluatio n Completed Medical Devices Description No Information Available Encounters Description No Information Available Assessments Date Code Description Provider 02/16/2020 F32.89 Other specified depressive episo marylu Viet Strong, PA-C 02/16/2020 F41.8 Other specified anxiety disorder s Viet Strong, PA-C 02/13/2020 F32.89 Other specified depressive episo marylu Peggy Emelia, [facility] 02/13/2020 F41.8 Other specified anxiety disorder s Peggy [place], [facility] 01/15/2020 F32.89 Other specified depressive episo marylu Viet Strong, PA-C 01/15/2020 F41.8 Other specified anxiety disorder s Viet Strong, PA-C 01/14/2020 F32.89 Other specified depressive episo marylu Peggy [place], [facility] 01/14/2020 F41.8 Other specified anxiety disorder s Peggy Emelia, HC 12/30/2019 F32.89 Other specified depressive episo marylu Viet Strong, PA-C 09/29/2019 F32.89 Other specified depressive episo marylu Viet Strong, PA-C Plan of Treatment Future Appointment(s):* 05/14/2020 11:00 am - PeggyWENDY Gómez at [facility] * 04/13/2020 11:00 am - Peggy WENDY Soler at [facility] * 06/14/2020 11:40 am - Viet Strong PA-C at [facility] * 03/30/2020 11:40 am - Viet Strong, PA-C at [facility] Functional Status Description No Information Available Mental Status Description No Information Available Referrals Description No Information Available
--- OUTSIDE RECORDS SUMMARY | 2020-05-05 07:57 | CCD ---
Author Author [facility] Organization [facility] Address Unknown Phone Unavailable Care Team Providers Care Pharmacy Messenger Name Role Phone Indio Turcios Unavailable PROBLEMS Type Condition ICD9-CM Code [id number] Code Onset Dates Condition S tatus SNOMED Code Notes Problem Migraine with aura and without status migrainosu s, not intractable G43.109 Active 3340814 Problem Cigarette nicotine dependence without complication F17.210 Active 41890355 Problem Cutaneous lupus erythematosus L93.2 Active 71 10417 Problem Subacute cutaneous lupus erythematosus L93.1 A ctive 951468748 Problem GERD without esophagitis K21.9 Active 6442680 05 Problem Lupus M32.9 Active 192162476 Problem Mixed hyperlipidemia E78.2 Active 866714735 Problem Abnormal uterine bleeding (AUB) N93.9 Active 69582452337682 Problem Bipolar affective disorder, remission status unspecified F31.9 Active 10754798 Problem GERD with esophagitis K21.0 Active 708183178 Problem Systemic lupus erythematosus , unspecified SLE type, unspecified organ involvement status M32.9 Active 43051469 Problem Fibromyalgia M79.7 Active 693802064 Problem Other chronic pain G89.29 Active 30854441 ALLERGIES Allergen (clinical drug ingredient) Drug/Non Drug Allergy do cumented on EMR Reaction Allergy Type Onset Date Status Lamisil Hives Drug Allergy Active ENCOUNTERS from 1975 to 2020-03-24 Encounter Location Date Provider Diagnosis [facility] [address] [place] [address] Mar, Indio Turcios IMMUNIZATIONS Vaccine Route Administration Date Status TDAP [...] Education Language: Question Answer Notes Languages spoken: Faroese Orthodoxy: Question Answer Notes Orthodoxy 21 Rastafari Drug and Alcohol Question Answer Notes Total [...] Information RESULTS No Results REASON FOR VISIT AUTHORIZATION MEDICAL (GENERAL) HISTORY Type Description Date Medical History migraines Medical History GERD Medical History vitamin D deficiency Medical History Raynaud's phenomenon Medical History Depression/ Anxiety Medical History Lupus Medical History PCOS Medical History fibromyalgia Surgical History gallbladder 2014 Surgical History tubal 2017 Hospitalization History surgery Hospitalization History [facility] 8-18 Goals Section No Information Health Concerns No Information MEDICAL EQUIPMENT No Information MENTAL STATUS No Information FUNCTIONAL STATUS No Information ASSESSMENTS No Information PLAN OF TREATMENT Next Appt Details Provider Name:Ne Tee, 2020-04-07 03:30:00 PM, [address], [address], Provider Name:Indio Turcios, 01:20:00 PM, [address] [place], [address], Provider Name:Indio Turcios, 07:30:00 AM, [facility] [place], [address], Provider Name:Indio Turcios, 11:20:00 AM, [address] [place] [address], [phone], Provider Name:Indio Turcios, 11:20:00 AM, [address] [place] [address], [phone], Insurance Providers Payer Name Payer Address Payer Phone Insured Name Patient Relati onship to Insured Coverage Start Date Coverage End Date [facility] [address] [facility] [address] [id number] FERMÍN MENDOZA [id number]
--- OUTSIDE RECORDS SUMMARY | 2020-05-05 07:57 | CCD ---
Author Author [facility] Organization [facility] Address Unknown Phone Unavailable Care Team Providers Care Family Consultant Name Role Phone Sean Baker MD Unavailable Unavailable Sean Baker MD Unavailable Unavailable Sean Baker MD Unavailable Unavailable Sean Baker MD Unavailable Unavailable Sean Baker MD Unavailable Unavailable Sean Baker MD Unavailable Unavailable Sean Baker MD Unavailable Unavailable Sean Baker MD Unavailable Unavailable Sean Baker MD Unavailable Unavailable Sean Baker MD Unavailable Unavailable Sean Baker MD Unavailable Unavailable Sean Baker MD Unavailable Unavailable Sean Baker MD Unavailable Unavailable Sean Baker MD Unavailable Unavailable Sean Baker MD Unavailable Unavailable Sean Baker MD Unavailable Unavailable Sean Baker MD Unavailable Unavailable Sean Baker MD Unavailable Unavailable Sean Baker MD Unavailable Unavailable Sean Baker MD Unavailable Unavailable Sean Baker MD Unavailable Unavailable Sean Baker MD Unavailable Unavailable Sean Baker MD Unavailable Unavailable Sean Baker MD Unavailable Unavailable Sean Baker MD Unavailable Unavailable Sean Baker MD Unavailable Unavailable Sean Baker MD Unavailable Unavailable GALEANA, J ENRIQUE PA Unavailable Unavailable GALEANA, J ENRIQUE PA Unavailable Unavailable GALEANA, J ENRIQUE PA Unavailable Unavailable GALEANA, J ENRIQUE PA Unavailable Unavailable GALEANA, J ENRIQUE PA Unavailable Unavailable GALEANA, J ENRIQUE PA Unavailable Unavailable GALEANA, J ENRIQUE PA Unavailable Unavailable GALEANA, J ENRIQUE PA Unavailable Unavailable GALEANA, J ENRIQUE PA Unavailable Unavailable GALEANA, J ENRIQUE PA Unavailable Unavailable GALEANA, J ENRIQUE PA Unavailable Unavailable GALEANA, J ENRIQUE PA Unavailable Unavailable GALEANA, J ENRIQUE PA Unavailable Unavailable GALEANA, J ENRIQUE PA Unavailable Unavailable GALEANA, J ENRIQUE PA Unavailable Unavailable GALEANA, J ENRIQUE PA Unavailable Unavailable GALEANA, J ENRIQUE PA Unavailable Unavailable GALEANA, J ENRIQUE PA Unavailable Unavailable GALEANA, J ENRIQUE PA Unavailable Unavailable GALEANA, J ENRIQUE PA Unavailable Unavailable GALEANA, J ENRIQUE PA Unavailable Unavailable GALEANA, J ENRIQUE PA Unavailable Unavailable GALEANA, J ENRIQUE PA Unavailable Unavailable GALEANA, J ENRIQUE PA Unavailable Unavailable GALEANA, J ENRIQUE PA Unavailable Unavailable GALEANA, J ENRIQUE PA Unavailable Unavailable GALEANA, J ENRIQUE PA Unavailable Unavailable KARLENE, YANIQUE Unavailable Unavailable GALEANA, J ENRIQUE PA Unavailable Unavailable GALEANA, J ENRIQUE PA Unavailable Unavailable GALEANA, J ENRIQUE PA Unavailable Unavailable GALEANA, J ENRIQUE PA Unavailable Unavailable GALEANA, J ENRIQUE PA Unavailable Unavailable GALEANA, J ENRIQUE PA Unavailable Unavailable GALEANA, J ENRIQUE PA Unavailable Unavailable GALEANA, J ENRIQUE PA Unavailable Unavailable GALEANA, J ENRIQUE PA Unavailable Unavailable GALEANA, J ENRIQUE PA Unavailable Unavailable GALEANA, J ENRIQUE PA Unavailable Unavailable GALEANA, J ENRIQUE PA Unavailable Unavailable GALEANA, J ENRIQUE PA Unavailable Unavailable GALEANA, J ENRIQUE PA Unavailable Unavailable GALEANA, J ENRIQUE PA Unavailable Unavailable GALEANA, J ENRIQUE PA Unavailable Unavailable GALEANA, J ENRIQUE PA Unavailable Unavailable GALEANA, J ENRIQUE PA Unavailable Unavailable GALEANA, J ENRIQUE PA Unavailable Unavailable GALEANA, J ENRIQUE PA Unavailable Unavailable GALEANA, J ENRIQUE PA Unavailable Unavailable GALEANA, J ENRIQUE PA Unavailable Unavailable GALEANA, J ENRIQUE PA Unavailable Unavailable GALEANA, J ENRIQUE PA Unavailable Unavailable GALEANA, J ENRIQUE PA Unavailable Unavailable GALEANA, J ENRIQUE PA Unavailable Unavailable GALEANA, J ENRIQUE PA Unavailable Unavailable EJ, GABE PA Unavailable Unavailable EJ, GABE PA Unavailable Unavailable EJ, GABE PA Unavailable Unavailable EJ, GABE PA Unavailable Unavailable EJ, GABE PA Unavailable Unavailable EJ, GABE PA Unavailable Unavailable EJ, GABE PA Unavailable Unavailable EJ, GABE PA Unavailable Unavailable EJ, GABE PA Unavailable Unavailable EJ, GABE PA Unavailable Unavailable EJ, GABE PA Unavailable Unavailable EJ, GABE PA Unavailable Unavailable EJ, GABE PA Unavailable Unavailable EJ, GABE PA Unavailable Unavailable EJ, GABE PA Unavailable Unavailable EJ, GABE PA Unavailable Unavailable EJ, GABE PA Unavailable Unavailable EJ, GABE PA Unavailable Unavailable EJ, GABE PA Unavailable Unavailable EJ, GABE PA Unavailable Unavailable EJ, GABE PA Unavailable Unavailable EJ, GABE PA Unavailable Unavailable EJ, GABE PA Unavailable Unavailable EJ, GABE PA Unavailable Unavailable EJ, GABE PA Unavailable Unavailable EJ, GABE PA Unavailable Unavailable EJ, GABE PA Unavailable Unavailable EJ, GABE PA Unavailable Unavailable EJ, GABE PA Unavailable Unavailable JE, GABE PA Unavailable Unavailable EJ, GABE PA Unavailable Unavailable EJ, GABE PA Unavailable Unavailable EJ, GABE PA Unavailable Unavailable EJ, GABE PA Unavailable Unavailable EJ, GABE PA Unavailable Unavailable EJ, GABE PA Unavailable Unavailable EJ, GABE PA Unavailable Unavailable EJ, GABE PA Unavailable Unavailable Susie Aguirre MD Unavailable Unavailable Susie Aguirre MD Unavailable Unavailable Susie Aguirre MD Unavailable Unavailable Susie Aguirre MD Unavailable Unavailable Susie Aguirre MD Unavailable Unavailable Susie Aguirre MD Unavailable Unavailable Susie Aguirre MD Unavailable Unavailable Susie Aguirre MD Unavailable Unavailable Susie Aguirre MD Unavailable Unavailable Susie Aguirre MD Unavailable Unavailable Susie Aguirre MD Unavailable Unavailable Susie Aguirre MD Unavailable Unavailable Zenon Aguirre Moid Unavailable Unavailable AguirreDellaul Moid MD Unavailable Unavailable AguirreZenon Moid Unavailable Unavailable Zenon Aguirre Moid Unavailable Unavailable AguirreZenon Moid Unavailable Unavailable AguirreDellaul Moid Unavailable Unavailable Aguirre, Zenon Moid Unavailable Unavailable Aguirre, Zenon Moid MD Unavailable Unavailable Aguirre, Zenon Moid MD Unavailable Unavailable AguirreDellaul Moid Unavailable Unavailable AguirreDellaul Moid MD Unavailable Unavailable AguirreDellaul Moid MD Unavailable Unavailable Aguirre, Zenon Moid MD Unavailable Unavailable Aguirre, Zenon Moid MD Unavailable Unavailable Aguirre, Zenon Moid MD Unavailable Unavailable Zenon Aguirre Moid Unavailable Unavailable Zenon Aguirre Moid Unavailable Unavailable Zenon Aguirre Moid MD Unavailable Unavailable Zenon Aguirre Moid Unavailable Unavailable Della Aguirreul Moid MD Unavailable Unavailable Zenon Aguirre Moid MD Unavailable Unavailable Zenon Aguirre Moid Unavailable Unavailable Zenon Aguirre Moid MD Unavailable Unavailable Zenon Aguirre Moid MD Unavailable Unavailable Zenon Aguirre Moid MD Unavailable Unavailable Zenon Aguirre Moid MD Unavailable Unavailable Zenon Aguirre Moid MD Unavailable Unavailable Zenon Aguirre Moid Unavailable Unavailable Zenon Aguirre Moid Unavailable Unavailable Zenon Aguirre Moid Unavailable Unavailable Zenon Aguirre Moid Unavailable Unavailable Zenon Aguirre Moid Unavailable Unavailable Zenon Aguirre Moid MD Unavailable Unavailable Zenon Aguirre Moid Unavailable Unavailable Zenon Aguirre Moid Unavailable Unavailable Zenon Aguirre Moid Unavailable Unavailable Zenon Aguirre Moid MD Unavailable Unavailable Zenon Aguirre Moid MD Unavailable Unavailable Della Aguirreul Moid MD Unavailable Unavailable Aguirre, Zenon Moid MD Unavailable Unavailable Della Aguirreul Moid Unavailable Unavailable Zenon Aguirre Moid Unavailable Unavailable Zenon Aguirre Moid Unavailable Unavailable Zenon Aguirre Moid Unavailable Unavailable Della Aguirreul Moid MD Unavailable Unavailable Aguirre, Zenon Moid MD Unavailable Unavailable Aguirre, Zenon Moid MD Unavailable Unavailable Della Aguirreul Moid Unavailable Unavailable Zenon Aguirre Moid Unavailable Unavailable Susie Aguirre MD Unavailable Unavailable Susie Aguirre MD Unavailable Unavailable Susie Aguirre MD Unavailable Unavailable Doctor Provided, Family PHYS No Family Unavailable U navailable Monterroso, Marian Rhoda PA Unavailable Unavailable Monterroso, Marian Rhoda PA Unavailable Unavailable Monterroso, Marian Rhoda PA Unavailable Unavailable Monterroso, Marian Rhoda PA Unavailable Unavailable Monterroso, Marian Rhoda PA Unavailable Unavailable Monterroso, Marian Rhoda PA Unavailable Unavailable Monterroso, Marian Rhoda PA Unavailable Unavailable Monterroso, Marian Rhoda PA Unavailable Unavailable Monterroso, Marian Rhoda PA Unavailable Unavailable Monterroso, Marian Rhoda PA Unavailable Unavailable Werchinski, L Lina PA Unavailable Unavailable Werchinski, L Lina PA Unavailable Unavailable Werchinski, L Lina PA Unavailable Unavailable Werchinski, L Lina PA Unavailable Unavailable Werchinski, L Lina PA Unavailable Unavailable Werchinski, L Lina PA Unavailable Unavailable Werchinski, L Lina PA Unavailable Unavailable Werchinski, L Lina PA Unavailable Unavailable Werchinski, L Lina PA Unavailable Unavailable Werchinski, L Lina PA Unavailable Unavailable Werchinski, L Lina PA Unavailable Unavailable Werchinski, L Lina PA Unavailable Unavailable Werchinski, L Lina PA Unavailable Unavailable Werchinski, L Lina PA Unavailable Unavailable Werchinski, L Lina PA Unavailable Unavailable Werchinski, L Lina PA Unavailable Unavailable Werchinski, L Lina PA Unavailable Unavailable Werchinski, L Lina PA Unavailable Unavailable Werchinski, L Lina PA Unavailable Unavailable Werchinski, L Lina PA Unavailable Unavailable Werchinski, L Lina PA Unavailable Unavailable Werchinski, L Lina PA Unavailable Unavailable Werchinski, L Lina PA Unavailable Unavailable Werchinski, L Lina PA Unavailable Unavailable Werchinski, L Lina PA Unavailable Unavailable Werchinski, L Lina PA Unavailable Unavailable Werchinski, L Lina PA Unavailable Unavailable Werchinski, L Lina PA Unavailable Unavailable Werchinski, L Lina PA Unavailable Unavailable Werchinski, L Lina PA Unavailable Unavailable Werchinski, L Lina PA Unavailable Unavailable Werchinski, L Lina PA Unavailable Unavailable Werchinski, L Lina PA Unavailable Unavailable Re-disclosure Warning The records that you are about to access may contain information from federally-assisted alcohol or drug abuse programs. If such information is present, then the following federally mandated warning applies: This information has been disclosed to you from records protected by federal confidentiality rules (42 CFR part 2). The federal rules prohibit you from making any further disclosure of this information unless further disclosure is expressly permitted by the written consent of the person to whom it pertains or as otherwise permitted by 42 CFR part 2. A general authorization for the release of medical or other information is NOT sufficient for this purpose. The Federal rules restrict any use of the information to criminally investigate or prosecute any alcohol or drug abuse patient.The records that you are about to access may contain highly sensitive health information, the redisclosure of which is protected by Article 27-F of the [facility] Public Health law. If you continue you may have access to information: Regarding HIV / AIDS; Provided by facilities licensed or operated by the [facility] Office of Mental Health; or Provided by the [facility] Office for People With Developmental Disabilities. If such information is present, then the following [facility] mandated warning applies: This information has been disclosed to you from confidential records which are protected by state law. State law prohibits you from making any further disclosure of this information without the specific written consent of the person to whom it pertains, or as otherwise permitted by law. Any unauthorized further disclosure in violation of state law may result in a fine or alf sentence or both. A general authorization for the release of medical or other information is NOT sufficient authorization for further disc losure. Allergies and Adverse Reactions Type Description Substance Reaction Status Data Source(s ) Drug allergy Lamisil Drug allergy Hives Active eCW1 ([facility]) Family History Family Member Name Family Member Gender Family Member Status Date o f Status Description Data Source(s) Unknown Unknown Problem MEDENT ([facility]) father, mother Unknown Unknown Problem MEDENT ([facility]) Unknown Male Diagnosis 05/31/2018 12:00:00 AM EST NextGen ([facility]) Encounters Encounter Providers Location Date Indications Data Source(s ) Outpatient [address] [facility] [address] 04/30/2020 12:00:00 AM EST eCW1 ([facility]) Unknown [address] [facility] [address] 04/27/2020 12:00:00 AM EST eCW1 ([facility]) TeleMedicine Phone E/M by Phys 11-20 Min [address] [place] [address] 04/07/2020 12:00:00 AM EST eCW1 ([facility]) Outpatient Attender: ENRIQUE BUTTS 03/30 11:32:00 AM EST - 03/30/2020 11:32:[address] [facility] Outpatient Attender: ENRIQUE BUTTS Family Practice 03/30 10:40:00 AM EST MEDENT ([facility]) Unknown [address] [facility] [address] 03/29/2020 12:00:00 AM EST eCW1 ([facility]) Unknown [address] [facility] [address] 03/23/2020 12:00:00 AM EST eCW1 ([facility]) Outpatient Attender: YANIQUE SOLER 03/16/2020 10:44:00 AM EST - 03/16/2020 10:44:[address] [facility] Outpatient [address] [facility] [address] 03/08/2020 12:00:00 AM EST eCW1 ([facility]) Outpatient Attender: ENRIQUE Cheneyerrer: Chetan cooper MD 02/16/2020 09:49:00 AM EDT - 02/16[facility] YANIQUEAp SOLER 02/13/2020 10:54:00 AM EDT - 02/13/2020 10:54:[address] [facility] Outpatient Attender: ENRIQUE BUTTS Family Practice 01/14 04:40:00 PM EDT MEDENT ([facility]) Outpatient Attender: ENRIQUE GALEANA PAAttender: YANIQUE SOLER 01/15/2020 03:55:00 PM EDT - 01/15/2020 03:55:00 PM EDT [facility] Outpatient Attender: YANIQUE SOLERReferrer: Chetan Baker MD 01/14/2020 09:03:00 AM EDT - 01/14/2020 09:03:[address] [facility] Outpatient Attender: ENRIQUE BUTTS 12/29 12:02:00 PM EDT - 12/30/2019 12:02:[address] [facility] Outpatient Attender: ENRIQUE BUTTS Family Practice 12/29 12:00:00 PM EDT MEDENT ([facility]) [facility] Rheumatology [address] [place] [address] 12/30/2019 12:00:00 AM EDT [facility]CW[facility] [address] [facility] [address] 11/13/2019 12:00:00 AM EDT eCW1 [facility]) Outpatient Attender: Rhoda caraballoy 10/18/2019 04:35:00 PM EDT MEDENT ([facility]) Outpatient Attender: ENRIQUE MAXWELLeferrer: Chetan cooper MD 09/29/2019 10:21:00 AM EDT - 09/29/2019 10:21:[address] [facility] Outpatient Attender: ENRIQUE BUTTS Family [facility] 09/28 10:20:00 AM EDT MEDENT ([facility]) [facility] [address] [facility] [address] 07/31/2019 12:00:00 AM EDT eCW1 ([facility] [address] [facility] [address] 07/23/2019 12:00:00 AM EDT eCW1 ([facility] Outpatient Attender: GABE Beckwith ry 07/07/2019 11:00:00 AM EDT MEDENT ([facility]) Outpatient Attender: ENRIQUE BUTTS Family Practice 06/29 10:00:00 AM EDT MEDENT ([facility]) Outpatient Attender: ENRIQUE BUTTS 06/29 09:51:00 AM EDT - 06/30/2019 09:51:[address] [facility] Outpatient Attender: YANIQUE SOLER 06/30/2019 09:10:00 AM EDT - 06/30/2019 09:10:00 AM EDT [facility] [address] [facility] [address] 06/27/2019 12:00:00 AM EST eCW1 ([facility] [place]) Outpatient Attender: Lina Cordero: Louisa [place] 05/21/2019 10:47:00 AM EST - 05/21/2019 11:15:00 AM EST [facility] [address] [place] [address] 05/19/2019 12:00:00 AM EST eCW1 ([facility]) [facility] [place] [address] [place] [address] 05/13/2019 12:00:00 AM EST [facility] Outpatient Attender: YANIQUE SOLER 05/01/2019 11:00:00 AM EST - 05/01/2019 11:00:00 AM EST [facility] [address] [place] [address] 04/28/2019 12:00:00 AM EST eCW1 ([facility] [place]) Outpatient Referrer: Deshawn Aguirre MD 04/24/2019 08:32:00 PM E [facility] Outpatient Attender: GABE warren 04/03/2019 10:00:00 AM EST MEDENT ([facility]) Outpatient Attender: ENRIQUE BUTTS 03/25 11:16:00 AM EST - 03/25/2019 11:16:00 AM EST [facility] [place] [address] [facility] [address] 03/10/2019 12:00:00 AM EST eCW1 ([facility]) Outpatient Attender: YANIQUE SOLER 02/24/2019 10:50:00 AM EST - 02/24/2019 10:50:[address] [facility] Medications Medication Brand Name Start Date Product Form Dose Route Admi nistrative Instructions Pharmacy Instructions Status Indications Reaction Description Data Source(s) Escitalopram 20 MG Oral Tablet Escitalopram Oxalate 02/16/2020 1 2:00:00 AM EDT ORAL active MEDENT ( [facility]) Amoxicillin 875 MG / Clavulanate 125 MG Oral Tablet Am oxicillin/Clavulanate Potassium 07/07/2019 12:00:00 AM EDT ORAL completed MEDENT ([facility]) Hydroxychloroquine Sulfate 200 MG Oral Tablet Hydroxychloroq uine 05/21/2019 11:15:07 AM EST [facility] Hydroxychloroquine Sulfate 200 MG Oral Tablet Hydroxychloroq uine 01/28/2019 12:31:10 PM EDT 200 MG completed [facility] Insurance Providers Payer name Policy type / Coverage type Policy ID Covered democrat ID Covered democrat's relationship to samuels Policy Samuels Plan Information BCBS EMPIRE JOSE DIV [id number] HU2 [id number] [facility] [id number] [id number] [employer] E[employer]IRE JOSE DIV [id number] HU2 [id number] [facility] [id number] [id number] [employer] E[employer]IRE JOSE DIV [id number] HU2 [id number] [facility] [id number] [employer] [id number] [id number] [facility] [place] [id number] 18 [id number] [employer] [facility] O [id number] S [id number] [facility] [place] [id number] 18 [id number] ANSI-Commercial [id number] [facility] [place] Commercial [id number] Family Depende nt [id number] [facility] [place] Health Maintenance Organization (HMO) [id number] Family Dependent [id number] BCBS EMPIRE JOSE DIV [id number] HU2 [id number] ANSI-Commercial [id number] ANSI-Commercial [id number] ANSI-Commercial [id number] BCBS EMPIRE JOSE DIV [id number] HU2 [id number] EMPIRE BLUE CROSS BLUE SHIELD -O/P [id number] ANSI-Commercial [id number] ANSI-Commercial [id number] ANSI-Commercial [id number] [facility] [id number] HU2 [id number] ANSI-Commercial [id number] [facility] [id number] [id number] [facility] Health Maintenance Organization (HMO) [id number] Family Dependent [id number] BCBS EMPIRE JOSE DIV [id number] HU2 [id number] [facility] [place] Commercial [id number] Family Depende nt [id number] [facility] [place] Commercial [id number] Family Depende nt [id number] [facility] [place] Commercial [id number] Family Depende nt [id number] [facility] Commercial [id number] Family Depende nt [id number] [facility] Health Maintenance Organization (HMO) [id number] Family Dependent [id number] [facility] [id number] HU2 [id number] [facility] Health Maintenance Organization (HMO) [id number] Family Dependent [id number] [facility] [place] Health Maintenance Organization (HMO) [id number] Family Dependent [id number] [facility] Commercial Family Depende nt BCBS EMPIRE JOSE DIV [id number] HU2 [id number] [employer] COMMUNITY PLAN MCDO [id number] SP [id number] BCBS EMPIRE JOSE DIV [id number] HU2 [id number] [employer] [id number] HU2 [id number] EMPIRE (STATE EMP) P [id number] P [id number] Problems, Conditions, and Diagnoses Code Display Name Description Problem Type Effective Dates Data Source(s) F17.211 [id number] Cigarette nicotine dependence in [facility] n Problem 04/18/2020 12:00:00 AM EST eCW1 ([facility]) E55.9 [id number] Vitamin D deficiency Problem 04/07/2020 12:0 0:00 AM EST eCW1 ([facility]) N93.9 [id number] Abnormal uterine bleeding (AUB) Problem 03/08/2020 12:00:00 AM EST eCW1 ([facility]) M32.9 [id number] Lupus Problem 10/13/2019 12:00:00 AM ED T eCW1 ([facility]) M32.9 95205806 Systemic lupus eryth ematosus, unspecified SLE type, unspecified organ involvement status Problem 05/19/2019 12:00:00 AM EST eCW1 ([facility]) G89.29 27140767 Other chronic pain Problem 05/19/2019 12:00: 00 AM EST eCW1 ([facility]) M79.7 582787239 Fibromyalgia Problem 05/19/2019 12:00:00 AM EST eCW1 ([facility]) M32.9 74605742 Systemic lupus eryth ematosus, unspecified SLE type, unspecified organ involvement status Problem 05/19/2019 12:00:00 AM EST eCW1 ([facility]) G89.29 57310343 Other chronic pain Problem 05/19/2019 12:00: 00 AM EST eCW1 ([facility]) M79.7 618007575 Fibromyalgia Problem 05/19/2019 12:00:00 AM EST eCW1 ([facility]) K21.0 066320556 GERD with esophagitis Problem 05/13/2019 12: 00:00 AM EST eCW1 ([facility]) K21.9 192514108 GERD without esophagitis Problem 05/13/2019 12:00:00 AM EST eCW1 ([facility]) K21.0 245765077 GERD with esophagitis Problem 05/13/2019 12: 00:00 AM EST eCW1 ([facility]) K21.9 512762397 GERD without esophagitis Problem 05/13/2019 12:00:00 AM EST eCW1 ([facility]) F418 Other specified anxiety disorders Other specifie d anxiety disorders Diagnosis 03/16/2020 10:44:00 AM [facility] F3289 Other specified depressive episodes Other specif ied depressive episodes Diagnosis 03/16/2020 10:44:00 AM [facility] 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) Results ID Date Data Source [id number] 04/30/2020 11:00:00 AM EST [facility] Name Value Range Interpretation Code Description Data Sherry rce(s) Supporting Document(s) SARS coronavirus 2 RNA Not Detected [facility] [place] This lab was ordered by [facility] and reported by [facility]. ID Date Data Source [id number] 05/21/2019 10:53:00 AM EST [facility] Patient Name: Jelena Mendoza : 1975 Sex: F Pt Unit #: [id number] Location:AMB.DERM Provider: Visit Date/Time: 05/21/19 Primary Insurance: [employer] [employer] Secondary Insurance: Self Pay Intake Vital Signs 05/21/19 10:57 Current Height 5 ft 1.5 in Current Weight 195 lb Weight Measurement Method Stated by Patient BMI 36.2 BP 122/70 Blood Pressure Location Lt brachial Position Sitting Pulse 100 Pulse Strength Normal Pulse Source Pulse Oximeter Pulse Oximetry (%) 98 Oxygen Delivery Method room air Intake Visit Reasons: Rash Accompanied by: Self / Same as Patient Is patient in pain?: No Allergies terbinafine HCl [From Lamisil] Allergy (Severe, Verified 05/21/19 11:20) Hives Patient : No PFSH - Derm Social History Does the Patient have a Healthcare Proxy: Yes Does Patient have a DNR?: No Does Patient have a Living Will?: Yes Pertinent Past History Pertinent Past History Previous skin cancer: none Family history of nonmelanoma skin cancer: Yes (father-bcc) Family history with melanoma: Yes (paternal uncle) Dermatology HPI History of Present Illness Details:: Patient saw Rheumatology in February and reports they diagnosed her with Fibr omyalgia. Shereports that not all of her lab work was back yet. She notes that they did talk about maybe adding Celexa to her medication list, and sending her to Physical Therapy. They did set her up with a referral to a vessel master as well. She does not have an appointment yet. Patient notes that she just picked up her last refill of Plaquenil. Current Symptoms Chief Complaint:: Lupus Location: face Duration: years Timing of symptoms: worse with sun exposure Current treatment: Plaquenil 200mg BID Treatment response: better Skin care goals for today' visit: none per patient Contacts/family history of similar?: No Dermatology ROS Constituitional Reports system reviewed and no additional complaints, except as documented Psych Reports system reviewed and no additional complaints, except as documented Additional Derm Plaquenil: annual eye exam (December 2018) Dermatology Exam Constitutional General appearance: comfortable Orientation Orientation: alert and oriented x 3 Skin Skin exam performed including: face, eyelids, nose, lips, neck, chest, right arm, right hand, fingers, left arm and left hand Face and Body: 1. 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 Need for baseline yearly eye exams discussed. Need for routine lab monitoring discussed. Risks, benefits, and side effects of medication including but not limited to: use of medication for off-label purpose, cardiomyopathy, liver failure, bone marrow suppression, hypoglycemia, neuromyopathy, and retinal toxicity. Patient understands the risks of the medication, all questions/concerns have been addressed and pt wishes to proceed with therapy. Orders Follow Up: yearly Electronically Signed By: <Electronically signed by Lina BUTTS> Date/Time Signed: 05/21/19 1121 Name Value Range Interpretation Code Description Data Sherry rce(s) Supporting Document(s) Procedure Social History Code Duration Value Status Description Data Source(s ) Smoking 04/30/2020 12:00:00 AM EST Former Smoker completed Former Smoker eCW1 ([facility]) Smoking 03/08/2020 12:00:00 AM EST Former Smoker completed Former Smoker eCW1 ([facility]) Smoking 03/08/2020 12:00:00 AM EST Former Smoker completed Former Smoker eCW1 ([facility]) Smoking 03/08/2020 12:00:00 AM EST Former Smoker completed Former Smoker eCW1 ([facility]) Smoking 03/08/2020 12:00:00 AM EST Former Smoker completed Former Smoker eCW1 ([facility]) Smoking 03/08/2020 12:00:00 AM EST Former Smoker completed Former Smoker eCW1 ([facility]) Smoking 10/13/2019 12:00:00 AM EDT Current Smoker completed Curre nt Smoker eCW1 ([facility]) Vital Signs ID Date Data Source UNK Name Value Range Interpretation Code Description Data Source(s) Diastolic blood pressure 78 mm[Hg] 78 mm[Hg] eCW1 ([facility]) Systolic blood pressure 122 mm[Hg] 122 mm[Hg] e CW1 ([facility]) Body mass index (BMI) [Ratio] 40.3 kg/m2 40.3 k g/m2 eCW1 ([facility]) Body height 61.5 [in_i] 61.5 [in_i] eCW1 ([facility]) Body weight 216.8 [lb_av] 216.8 [lb_av] eCW1 ([facility]) Diastolic blood pressure 80 mm[Hg] 80 mm[Hg] eCW1 ([facility]) Systolic blood pressure 132 mm[Hg] 132 mm[Hg] e CW1 ([facility]) Body mass index (BMI) [Ratio] 39.22 kg/m2 39.22 kg/m2 eCW1 ([facility]) Body height 61.5 [in_i] 61.5 [in_i] eCW1 ([facility]) Body weight 211 [lb_av] 211 [lb_av] eCW1 ([facility]) Heart rate 99 /min 99 /min MEDENT ([facility]) Diastolic blood pressure 97 mm[Hg] 97 mm[Hg] MEDENT ([facility], [facility]) Systolic blood pressure 139 mm[Hg] 139 mm[Hg] M EDENT ([facility], [facility]) Body mass index (BMI) [Ratio] 36.5 kg/m2 36.5 k g/m2 MEDENT ([facility], [facility]) Body height 61 [in_i] 61 [in_i] MEDENT ([facility], [facility]) 5'1" Body weight 193.00 [lb_av] 193.00 [lb_av] MEDEN T ([facility], [facility]) Body temperature 99.3 [degF] 99.3 [degF] MEDENT ([facility], [facility]) Oxygen saturation in Arterial blood by Pulse oximetry 99 % 99 % MEDENT ([facility], [facility]) Respiratory rate 17 /min 17 /min MEDENT ( [facility], [facility]) Body mass index (BMI) [Ratio] 35.0 kg/m2 35.0 k g/m2 MEDENT ([facility], [facility]) Body height 61 [in_i] 61 [in_i] MEDENT ([facility]) 5'1" Body weight 185.00 [lb_av] 185.00 [lb_av] MEDEN T ([facility], [facility]) Body temperature 98.4 [degF] 98.4 [degF] MEDENT ([facility], [facility]) Oxygen saturation in Arterial blood by Pulse oximetry 98 % 98 % MEDENT ([facility], [facility]) Respiratory rate 22 /min 22 /min MEDENT ( [facility], [facility]) Heart rate 118 /min 118 /min MEDENT ([facility], [facility]) Diastolic blood pressure 94 mm[Hg] 94 mm[Hg] MEDENT ([facility], [facility]) Systolic blood pressure 130 mm[Hg] 130 mm[Hg] M EDENT ([facility], [facility]) Diastolic blood pressure 82 mm[Hg] 82 mm[Hg] eCW1 ([facility]) Systolic blood pressure 126 mm[Hg] 126 mm[Hg] e CW1 ([facility]) Body temperature 98.3 [degF] 98.3 [degF] eCW1 ( [facility]) Respiratory rate 18 /min 18 /min eCW1 ([facility]) Heart rate 122 /min 122 /min eCW1 ([facility]) Body mass index (BMI) [Ratio] 37.10 kg/m2 37.10 kg/m2 eCW1 ([facility]) Body height 61.5 [in_us] 61.5 [in_us] eCW1 ([facility]) Body weight Measured 199.6 [lb_av] 199.6 [lb_av ] eCW1 ([facility]) Diastolic blood pressure 82 mm[Hg] 82 mm[Hg] eCW1 ([facility]) Systolic blood pressure 130 mm[Hg] 130 mm[Hg] e CW1 ([facility]) Body temperature 96.9 [degF] 96.9 [degF] eCW1 ( [facility]) Respiratory rate 18 /min 18 /min eCW1 ([facility]) Heart rate 110 /min 110 /min eCW1 ([facility]) Body mass index (BMI) [Ratio] 37.92 kg/m2 37.92 kg/m2 eCW1 ([facility]) Body height 61.5 [in_us] 61.5 [in_us] eCW1 ([facility]) Body weight Measured 204 [lb_av] 204 [lb_av] eC W1 ([facility]) Body mass index (BMI) [Ratio] 35.3 kg/m2 35.3 k g/m2 MEDENT ([facility]) Body height 61 [in_i] 61 [in_i] MEDENT ([facility]) 5'1" Body weight 187.00 [lb_av] 187.00 [lb_av] MEDEN T ([facility], [facility]) Body temperature 98.2 [degF] 98.2 [degF] MEDENT ([facility], [facility]) Oxygen saturation in Arterial blood by Pulse oximetry 98 % 98 % MEDENT ([facility], [facility]) Respiratory rate 18 /min 18 /min MEDENT ( [facility], [facility]) Heart rate 92 /min 92 /min MEDENT ([facility], [facility]) Diastolic blood pressure 103 mm[Hg] 103 mm[Hg] MEDENT ([facility], [facility]) Systolic blood pressure 135 mm[Hg] 135 mm[Hg] M EDENT ([facility], [facility])
--- OUTSIDE RECORDS SUMMARY | 2020-05-05 07:57 | CCD ---
Author Author [facility] Organization [facility] Address Unknown Phone Unavailable Care Team Providers Care Payloader Machine Operator Name Role Phone Indio Turcios Unavailable PROBLEMS Type Condition ICD9-CM Code GVL48-BX Code Onset Dates Condition S tatus SNOMED Code Notes Problem Migraine with aura and without status migrainosu s, not intractable G43.109 Active 1253221 Problem Cigarette nicotine dependence without complication F17.210 Active 53609275 Problem Cutaneous lupus erythematosus L93.2 Active 71 69485 Problem Subacute cutaneous lupus erythematosus L93.1 A ctive 180149670 Problem GERD without esophagitis K21.9 Active 2614005 05 Problem Lupus M32.9 Active 527576682 Problem Mixed hyperlipidemia E78.2 Active 045909538 Problem Abnormal uterine bleeding (AUB) N93.9 Active 18558419908564 Problem Bipolar affective disorder, remission status unspecified F31.9 Active 00869623 Problem GERD with esophagitis K21.0 Active 684392752 Problem Systemic lupus erythematosus , unspecified SLE type, unspecified organ involvement status M32.9 Active 18946789 Problem Fibromyalgia M79.7 Active 554010302 Problem Other chronic pain G89.29 Active 45538488 ALLERGIES Allergen (clinical drug ingredient) Drug/Non Drug Allergy do cumented on EMR Reaction Allergy Type Onset Date Status Lamisil Hives Drug Allergy Active ENCOUNTERS from 1975 to 2020-03-17 Encounter Location Date Provider Diagnosis [facility] [address] [place] [address] 16 Feb, 2020 Indio Turcios Abnormal uterine ble eding (AUB) N93.9 IMMUNIZATIONS Vaccine Route Administration Date Status TDAP [...] Not Finished College Audit Question Answer Notes Interpretation: Alcohol Education Total Score: 0 Language: Question Answer Notes Languages spoken: German Christianity: Question Answer Notes Christianity 21 Cheondoism Drug and Alcohol Question Answer Notes Interpretation: No problems reported Total Score: 0 Tobacco Use: Question Answer Notes Are you a: former smoker How long has it been since you last smoked? < 1 month REASON FOR REFERRAL No Information VITAL SIGNS Weight 211 lbs Feb, Height 61.5 in Feb, BMI 39.22 kg/m2 Feb, Blood pressure systolic 132 mm Hg Feb, Blood pressure diastolic 80 mm Hg Feb, MEDICATIONS Medication SIG (Take, Route, Frequency, Duration) [...] Information RESULTS No Results REASON FOR VISIT FIBROIDS MEDICAL (GENERAL) HISTORY Type Description Date Medical History migraines Medical History GERD Medical History vitamin D deficiency Medical History Raynaud's phenomenon Medical History Depression/ Anxiety Medical History Lupus Medical History PCOS Medical History fibromyalgia Surgical History gallbladder 2014 Surgical History tubal 2017 Hospitalization History surgery Hospitalization History [facility] 8-18 Goals Section No Information Health Concerns No Information MEDICAL EQUIPMENT No Information MENTAL STATUS No Information FUNCTIONAL STATUS No Information ASSESSMENTS Encounter Date Diagnosis Assessment Notes Treatment Notes Treatm ent Clinical Notes Feb, Abnormal uterine bleeding (AUB) (ICD-10 - N93.9) Initial AUB workup ordered. Treatment options discussed, both medical and surgical. Patient will consider these options and decide once workup is completed. PLAN OF TREATMENT Treatment Notes Assessment Notes Clinical Notes Abnormal uterine bleeding (AUB) Initial AUB workup ordered. Treatment options discussed, both medical and surgical. Patient will consider these options and decide once workup is completed. Treatment Notes Test Name Order Date CBC - Complete Blood Count 2020-03-17 TSH 2020-03-17 Next Appt Details TBD Reason: Provider Name:Ne Tee, 2020-04-07 03:30:00 PM, [id number], [place], [address], Insurance Providers Payer Name Payer Address Payer Phone Insured Name Patient Relati onship to Insured Coverage Start Date Coverage End Date [facility] [address] [facility] [id number] FERMÍN MENDOZA [id number]
[2020-05-05] MEDS ORDERED: propofoL 200 MG/20 ML VIAL As Ordered ONE (08:23)
[2020-05-05] MEDS ORDERED: ROCURONIUM BROMIDE 50 MG/5 ML VIAL As Ordered ONE ×2 (08:23→11:08)
[2020-05-05] MEDS ORDERED: MIDAZOLAM INJ 2MG/2ML VIAL (J2250 PER 1MG) As Ordered ONE (08:23)
[2020-05-05] MEDS ORDERED: LIDOCAINE 2% 100MG/5ML SDV (FOR ANES.) As Ordered ONE (08:23)
[2020-05-05] MEDS ORDERED: fentaNYL 250 MCG/5 ML INJECTION (J3010) As Ordered ONE (08:23)
[2020-05-05] MEDS ORDERED: MAXA10TA14 PO (08:24)
[2020-05-05] MEDS ORDERED: METHYLENE BLUE 0.5% (5MG/ML) 10 ML AMP (PROVAYBLUE) As Ordered ONE (08:24)
[2020-05-05] MEDS ORDERED: BUPIVACAINE HCL 0.25% 30ML VIAL As Ordered ONE (08:24)
[2020-05-05 08:28] LABS: HEMATOCRIT 39.9 % (36.0-47.0); HEMOGLOBIN 12.9 g/dl (12.0-15.5); MEAN CORPUSCULAR HEMOGLOBIN 28.6 pg (27.0-33.0); MEAN CORPUSCULAR HGB CONC 32.3 g/dl (32.0-36.5); MEAN CORPUSCULAR VOLUME 88.5 fl (80.0-96.0); PLATELET COUNT, AUTOMATED 334 10^3/uL (150-450); RED BLOOD COUNT 4.51 10^6/uL (4.00-5.40); WHITE BLOOD COUNT 6.8 10^3/uL (4.0-10.0)
[2020-05-05] MEDS ORDERED: RIZATRIPTAN BENZOATE 10 MG TAB PO PRN (09:00)
[2020-05-05 09:26] LABS: HCG, SERUM QUALITATIVE NEGATIVE (NEGATIVE)
[2020-05-05] MEDS ORDERED: LACRILUBE (AKWA TEARS) OPHTH OINT 3.5 GM As Ordered ONE (10:09)
[2020-05-05] MEDS ORDERED: KETOROLAC 60MG 2ML VIAL As Ordered ONE (10:28)
[2020-05-05] MEDS ORDERED: dexameTHASONE 4 MG/ML 1ML VIAL (J1100 PER 1MG) As Ordered ONE (10:28)
[2020-05-05] MEDS ORDERED: ONDANSETRON 4MG/2ML VIAL As Ordered ONE ×2 (10:28→11:52)
[2020-05-05] MEDS ORDERED: METOCLOPRAMIDE INJ 10MG/2ML VIAL (J2765 PER 1) As Ordered ONE (10:28)
[2020-05-05] MEDS ORDERED: SUGAMMADEX SODIUM 500 MG/5 ML VIAL (BRIDION) As Ordered ONE (10:28)
[2020-05-05] MEDS ORDERED: HYDROmorphone HCL 2 MG/ML 1ML VIAL (J1170) As Ordered ONE (11:06)
[2020-05-05] MEDS ORDERED: ACETAMINOPHEN 1000MG 100ML IV BTL (OFIRMEV) (J0131 PER 10MG) As Ordered ONE (11:24)
[2020-05-05] MEDS ORDERED: PROMETHAZINE INJ 25 MG/ML VIAL (J2550) As Ordered ONE (12:09)
--- NOTE | 2020-05-05 12:24 | ROOPDOC ---
[facility] Report Of Operation Report of Operation DATE OF PROCEDURE: 05/05/2020 PREPROCEDURE DIAGNOSES: Abnormal uterine bleeding, chronic pelvic pain due to uterine leiomyomas POSTPROCEDURE DIAGNOSES: Same. PROCEDURE: Robotic-assisted total laparoscopic hysterectomy, cystoscopy SURGEON: Indio Turcios D.O. [employer] PROFESSOR: Brenna Cortes ANESTHESIA: General endotracheal. ESTIMATED BLOOD LOSS: Approximately 100 mL. FLUIDS REPLACED: 1200 mL LR URINE OUTPUT: 50 mL COMPLICATIONS: None. FINDINGS: Normal-appearing ovaries bilaterally. Uterus was approximately 10 centimeters in greatest dimension with a large 5-6 cm fundal/intramural leiomyoma Cystoscopy: Bilateral ureteral orifice efflux, no bladder injury/suture material. PREOPERATIVE ANTIBIOTIC PROPHYLAXIS: Ancef 2 g IV 1. SPECIMEN(S): Uterus w/ cervix, bilateral fallopian tubes DESCRIPTION OF PROCEDURE: The patient was counseled, consented on the respective benefits, indications, alternatives of procedure. Informed consent was obtained. She was taken to the operating room with an IV running. She was placed on the operating table in d orsal supine position. Gen. anesthesia was administered and the airway was secured without any difficulty. She was placed in the low lithotomy position. . She was prepared and draped in the normal sterile fashion. A time out was performed per protocol. A Buckner catheter was placed under sterile conditions. A sterile speculum was placed resulting in good visualization of the cervix. A single-tooth tenaculum was used to grasp the anterior lip cervix. The cervix was sequentially dilated with Ramirez dilators. A V-Care uterine manipulator was placed without any difficulty. The single-tooth tenaculum was removed, as well as the speculum. A sterile glove switch was performed. Attention was turned to the abdomen. A 2mm incision was made in the umbilicus, and through this incision a Veress needle was inserted into the intraperitoneal cavity. Intraperitoneal placement was confirmed with ease of flow of normal saline, positive drop test, no return on aspiration, and an opening pressure of less than 10 mmHg upon initial insufflation. The abdomen was insufflated with 2 L of gas. The Veress needle was removed. A supraumbilical 8 mm incision was made. Through this incision, the robotic trochar/cannula was inserted into the intraperitoneal cavity under direct visualization. No incidental bleeding nor injury was noted. Patient was placed in 30 Trendelenburg. The right and left trocars/cannulas were placed on both the right and left side through 8 mm incisions, guided by laparoscopic visualization. No incidental bleeding nor injury was noted. The robot was docked in typical fashion. The instruments were inserted, guided by laparoscopic visualization. My attention was turned to the robotic console. The right and left fallopian tubes were noted to be completely absent, consistent with her history of bilateral salpingectomy The right utero-ovarian ligament and right round ligament were sequentially clamped, coagulated and transected with the vessel sealer device. The vesicouterine peritoneum was dissected with the vessel sealer device to create the bladder flap, thus mobilizing the lower uterine segment and cervix off of the bladder. The right uterine vasculature was sequentially clamped, coagulated and transected above the colpotomy cup. The left utero-ovarian ligament and left round ligament were sequentially clamped, coagulated and transected with the vessel sealer device. The remainder of the bladder flap was dissected using the vessel sealer device and blunt dissection. The left uterine vasculature was sequentially clamped, coagulated and transected above the colpotomy cup. The outline of the entire V- care colpotomy cup was able to be delineated. Excellent blanching of the uterus was noted. A circumferential colpotomy was performed using the da Uriel monopolar mitchell, following the contour of the cup. The amputated cervix and uterus were brought through the colpotomy into and out of the vagina, intact as one unit. The colpotomy was closed with the V-lock barbed suture in running fashion, thus creating the vaginal cuff. Excellent hemostasis was noted throughout the steps above. Makenzie was placed over the vaginal cuff to ensure hemostasis. The instruments were removed from the abdomen and the robot was un-docked. The gas was released from the abdomen and the patient was taken out of Trendelenburg. I re-scrubbed, and attention was turned to the pelvis. The Buckner catheter was removed. The cystoscope was placed transurethrally into the bladder and normal saline was instilled. No bladder injury/suture material was noted. IV methylene blue had been administered by anesthesia and bilateral UO efflux was confirmed. The fluid was drained out of the bladder through the cystoscope device, then the cystoscope was removed. The vagina was copiously irrigated. A sterile digital vaginal exam revealed no significant bleeding and an intact vaginal cuff. A sterile glove switch was performed. The da Uriel cannulas were removed. The skin incisions were closed with 4-0 Monocryl in subcuticular fashion. Sponge, needle and instrument counts were correct per protocol. The patient tolerated the entire procedure very well. She was transferred to the PACU in good and stable condition. DO HALLE Andre JONATHAN R. DO May 05, 2020 12:24
[2020-05-05] MEDS ORDERED: oxyCODONE 5MG TAB PO PRN (12:30)
[2020-05-05] MEDS ORDERED: METOCLOPRAMIDE INJ 10MG/2ML VIAL (J2765 PER 1) IV PRN (12:30)
[2020-05-05] MEDS ORDERED: LR 1,000 ML IV SCH (12:30)
[2020-05-05] MEDS ORDERED: PILL CUTTER 1 EACH XX PRN (12:30)
[2020-05-05] MEDS ORDERED: HYDROMORPHONE HCL 0.5 MG/ 0.5 ML SYRINGE (J1170 PER 1) IV PRN (12:30)
[2020-05-05] MEDS ORDERED: fentaNYL 100 MCG/2 ML INJECTION (J3010) IV PRN (12:30)
[2020-05-05] MEDS ORDERED: PROMETHAZINE INJ 25 MG/ML VIAL (J2550) IV PRN (12:45)
[2020-05-05] MEDS ORDERED: LABETALOL 100MG/20ML VIAL As Ordered ONE (12:51)
[2020-05-05] MEDS: LABETALOL 100MG/20ML VIAL IV SCH ×5 (12:56→13:35)
[2020-05-05] MEDS ORDERED: PERCOCET 5MG/325MG TAB PO PRN ×2 (13:30)
[2020-05-05] MEDS ORDERED: DOCUSATE SODIUM 100MG CAPSULE PO PRN (13:30)
[2020-05-05] MEDS ORDERED: ONDANSETRON 4MG/2ML VIAL IV PRN (13:30)
[2020-05-05] MEDS ORDERED: diphenhydrAMINE 25MG CAP PO PRN (13:30)
[2020-05-05] MEDS: HYDROXYCHLOROQUINE 200 MG TAB PO SCH ×2 (14:10→20:53)
[2020-05-05] MEDS: OMEPRAZOLE 20 MG CAP PO SCH (14:10)
[2020-05-05] MEDS: TOPIRAMATE (TopAMAX) 100 MG TAB PO SCH ×2 (14:10→20:53)
[2020-05-05] MEDS: ESCITALOPRAM OXALATE 10 MG TAB (LEXAPRO) PO SCH (14:10)
[2020-05-05] MEDS ORDERED: PERCOCET PO (14:39)
[2020-05-05] MEDS ORDERED: DOK1CAP7 PO (14:41)
[2020-05-05] MEDS ORDERED: IBUP80TA PO (14:41)
[2020-05-05] MEDS ORDERED: KETOROLAC 30 MG/ML 1ML VIAL IV PRN (18:00)
[2020-05-06 02:00] VITALS: BP 115/65
[2020-05-06] MEDS: OMEPRAZOLE 20 MG CAP PO SCH (08:16)
[2020-05-06] MEDS: HYDROXYCHLOROQUINE 200 MG TAB PO SCH (08:16)
[2020-05-06] MEDS: ESCITALOPRAM OXALATE 10 MG TAB (LEXAPRO) PO SCH (08:17)
[2020-05-06] MEDS: TOPIRAMATE (TopAMAX) 100 MG TAB PO SCH (08:17)
== END 2020-05-06 11:05 | disposition home or self-care (01) ==
LOC: M SDC 07:52 → M MS5PR 14:10 → M SDC 05-06 11:05
PROVIDERS: ATTEND Obstetrics & Gynecology
DX: N93.9 Abnormal uterine and vaginal bleeding, unspecified (principal); R10.2 Pelvic and perineal pain; N80.0 Endometriosis of uterus; D25.1 Intramural leiomyoma of uterus; K21.9 Gastro-esophageal reflux disease without esophagitis; M32.9 Systemic lupus erythematosus, unspecified; F32.9 Major depressive disorder, single episode, unspecified; G43.909 Migraine, unspecified, not intractable, without status migrainosus; Z87.891 Personal history of nicotine dependence; Z88.8 Allergy status to other drugs, medicaments and biological substances; Z79.899 Other long term (current) drug therapy
CPT/HCPCS: 36415; 58570; 84703; 85027; 86850; 86900; 86901; 88307; J0131; J0690; J1100; J1170; J1885; J2250; J2405; J2765; J3010; Q9968; S2900

== ENCOUNTER → 2021-02-23 | Outpatient (CLI) | payer BC, OTHER ==
[~2021-02-23] MED LIST changes: +DOK1CAP4 PO; +IBUP80TA PO; -LIDOCAINE 1% MDV 20ML VIAL SQ PRN; -LR 1,000 ML IV ONE; +MAXA10TA14 PO; +OMEP40CA4 PO; -OMEP40CA97 PO; +PERCOCET PO; -ceFAZolin SOD 2 GM in IV 1 EA IV ONE
--- NOTE | 2021-02-23 12:39 | REP ---
INDICATION: PAIN IN BOTH KNEES COMPARISON: None TECHNIQUE: Five views each knee FINDINGS: The compartments are symmetric and well maintained. There is no fracture, dislocation, or subluxation. Seen arising from the proximal medial tibial diaphyseal cortex a small exostosis is seen likely a small developing osteo chondroma. IMPRESSION: 1. Right knee unremarkable. 2. Left knee as described above. If the patient has focal proximal medial tibial pain than an MRI would be in order. <Electronically signed by Lauri Garcia > 02/23/21 [id number]
== END ==
LOC: M ADAMS 11:44
PROVIDERS: ATTEND Physician Assistant
DX: M25.562 Pain in left knee (principal); M25.561 Pain in right knee; M89.9 Disorder of bone, unspecified

== ENCOUNTER → 2021-02-23 | Outpatient (REF) | payer OTHER ==
[2021-02-23 15:44] LABS: GC DNA AMPLIFICATION NEGATIVE (NEGATIVE)
== END ==
LOC: M SFHCADAM 11:51
PROVIDERS: ATTEND Physician Assistant
DX: M25.562 Pain in left knee (principal)

== ENCOUNTER → 2021-07-20 | Outpatient (REF) | payer OTHER ==
[2021-07-20 14:05] LABS: APPEARANCE, URINE HAZY (CLEAR); BACTERIA, URINE AUTO 1+ (NEGATIVE); BILIRUBIN, URINE AUTO NEGATIVE (NEGATIVE); BLOOD, URINE BLOOD NEGATIVE (NEGATIVE); COLOR, URINE YELLOW (YELLOW); GLUCOSE, URINE (UA) AUTO NEGATIVE (NEGATIVE); KETONE, URINE AUTO NEGATIVE (NEGATIVE); LEUKOCYTE ESTERASE, URINE AUTO NEGATIVE (NEGATIVE); MUCUS, URINE SMALL (NEGATIVE); NITRITE, URINE AUTO NEGATIVE (NEGATIVE); PROTEIN, URINE AUTO 1+ mg/dL (NEGATIVE); RBC, URINE AUTO 1 /HPF (0-3); SQUAMOUS EPITHELIAL CELL UR AU 4 /HPF (0-6); UROBILINOGEN, URINE AUTO 0.2 mg/dL (0.0-2.0); WBC, URINE AUTO 1 /HPF (0-3)
[2021-07-20 14:13] LABS: BASO % 0.6 % (0.0-1.0); EOS # 0.1 10^3/uL (0.0-0.5); EOS % 1.3 % (0.0-3.0); HEMATOCRIT 41.9 % (36.0-47.0); HEMOGLOBIN 13.9 g/dl (12.0-15.5); LYMPH % 29.4 % (24.0-44.0); MEAN CORPUSCULAR HEMOGLOBIN 29.5 pg (27.0-33.0); MEAN CORPUSCULAR HGB CONC 33.2 g/dl (32.0-36.5); MONO # 0.5 10^3/uL (0.0-0.8); NEUTROPHILS # 4.1 10^3/uL (1.5-8.5); NEUTROPHILS % 60.4 % (36.0-66.0); PLATELET COUNT, AUTOMATED 313 10^3/uL (150-450); RED BLOOD COUNT 4.71 10^6/uL (4.00-5.40); WHITE BLOOD COUNT 6.8 10^3/uL (4.0-10.0)
[2021-07-20 14:22] LABS: ALBUMIN 3.9 GM/DL (3.2-5.2); ALT/SGPT 34 U/L (12-78); BILIRUBIN,TOTAL 0.7 MG/DL (0.2-1.0); BLOOD UREA NITROGEN 14 MG/DL (7-18); C REACTIVE PROTEIN QUANTITATIV 0.74 MG/DL (0.00-0.30); CALCIUM LEVEL 9.1 MG/DL (8.5-10.1); CARBON DIOXIDE LEVEL 22 MEQ/L (21-32); CHLORIDE LEVEL 112 MEQ/L (98-107); CREATININE FOR GFR 0.91 MG/DL (0.55-1.30); GLOMERULAR FILTRATION RATE > 60.0 (>58); GLUCOSE, FASTING 92 MG/DL (70-100); POTASSIUM SERUM 3.9 MEQ/L (3.5-5.1); SODIUM LEVEL 139 MEQ/L (136-145); TOTAL 25(OH) VITAMIN D 29.1 NG/ML (30.0-100.0); TOTAL PROTEIN 8.3 GM/DL (6.4-8.2)
[2021-07-20 14:40] LABS: ERYTHROCYTE SEDIMENTATION RATE 27 mm/hr (0-20)
[2021-07-20 15:04] LABS: TOTAL PROTEIN,RANDOM URINE 49.7 MG/DL (0.0-12.0)
[2021-07-20 15:41] LABS: COMPLEMENT C3 161 MG/DL (90-180); COMPLEMENT C4 19 MG/DL (10-40); IMMUNOGLOBULIN G 1450 MG/DL (681-1648); IMMUNOGLOBULIN M 51.7 MG/DL (40-230)
== END ==
LOC: M SFHCRHEU 09:25
PROVIDERS: ATTEND Internal Medicine Rheumatology
DX: M35.01 Sjogren syndrome with keratoconjunctivitis (principal); L93.2 Other local lupus erythematosus; Z79.899 Other long term (current) drug therapy; I73.00 Raynaud's syndrome without gangrene

== ENCOUNTER → 2021-11-25 | Outpatient (CLI) | payer BC, OTHER ==
[~2021-11-25] MED LIST changes: +MELA10TA14 PO; -MELA10TA6 PO
== END ==
LOC: M WHC 10:50
PROVIDERS: ATTEND Obstetrics & Gynecology
DX: Z12.31 Encounter for screening mammogram for malignant neoplasm of breast (principal)

== ENCOUNTER → 2023-05-29 | Outpatient (REF) | payer BC, OTHER ==
[~2023-05-29] MED LIST changes: -HYDR200T3 PO; +HYDR200T46 PO; -MAXA10TA14 PO; +RIZA10TA64 PO; +TOPI-21 PO; -TOPI50TA9 PO
[2023-05-29 12:46] LABS: BASO % 0.4 % (0.0-1.0); EOS # 0.1 10^3/uL (0.0-0.5); EOS % 1.2 % (0.0-3.0); HEMATOCRIT 45.6 % (36.0-47.0); HEMOGLOBIN 15.5 g/dl (12.0-15.5); LYMPH # 2.1 10^3/uL (1.5-5.0); LYMPH % 22.7 % (24.0-44.0); MEAN CORPUSCULAR HEMOGLOBIN 30.6 pg (27.0-33.0); MEAN CORPUSCULAR VOLUME 90.1 fl (80.0-96.0); MONO # 0.7 10^3/uL (0.0-0.8); MONO % 8.1 % (2.0-8.0); NEUTROPHILS # 6.1 10^3/uL (1.5-8.5); NEUTROPHILS % 67.3 % (36.0-66.0); PLATELET COUNT, AUTOMATED 311 10^3/uL (150-450); RED BLOOD COUNT 5.06 10^6/uL (4.00-5.40); WHITE BLOOD COUNT 9.1 10^3/uL (4.0-10.0)
[2023-05-29 13:05] LABS: ALBUMIN 3.7 G/DL (3.2-5.2); ALKALINE PHOSPHATASE 62 U/L (46-116); ALT/SGPT 16 U/L (7.0-40); AST/SGOT 12 U/L (<34); BILIRUBIN,TOTAL 0.3 MG/DL (0.3-1.2); BLOOD UREA NITROGEN 13 MG/DL (9-23); CALCIUM LEVEL 9.2 MG/DL (8.5-10.1); CARBON DIOXIDE LEVEL 26 MMOL/L (20-31); CHLORIDE LEVEL 108 MMOL/L (98-107); CREATININE FOR GFR 0.74 MG/DL (0.55-1.30); GLOMERULAR FILTRATION RATE > 60.0 (>58); GLUCOSE, FASTING 83 MG/DL (60-100); POTASSIUM SERUM 3.9 MMOL/L (3.5-5.1); SODIUM LEVEL 139 MMOL/L (136-145); TOTAL PROTEIN 7.8 G/DL (5.7-8.2)
[2023-05-29 14:50] LABS: COMPLEMENT C3 151.3 MG/DL (90.0-170.0); COMPLEMENT C4 17.3 MG/DL (12-36); IMMUNOGLOBULIN A 455.7 MG/DL (40-350)
[2023-05-29 14:53] LABS: AMORPHOUS SEDIMENT SMALL (NEGATIVE); APPEARANCE, URINE CLOUDY (CLEAR); BACTERIA, URINE AUTO NEGATIVE (NEGATIVE); BILIRUBIN, URINE AUTO NEGATIVE (NEGATIVE); BLOOD, URINE BLOOD NEGATIVE (NEGATIVE); COLOR, URINE YELLOW (YELLOW); GLUCOSE, URINE (UA) AUTO NEGATIVE (NEGATIVE); KETONE, URINE AUTO NEGATIVE (NEGATIVE); LEUKOCYTE ESTERASE, URINE AUTO NEGATIVE (NEGATIVE); MUCUS, URINE SMALL (NEGATIVE); NITRITE, URINE AUTO NEGATIVE (NEGATIVE); PROTEIN, URINE AUTO NEGATIVE (NEGATIVE); RBC, URINE AUTO 0 /HPF (0-3); SPECIFIC GRAVITY URINE AUTO 1.016 (1.002-1.035); SQUAMOUS EPITHELIAL CELL UR AU 1 /HPF (0-6); UROBILINOGEN, URINE AUTO 0.2 mg/dL (0.0-2.0); WBC, URINE AUTO 0 /HPF (0-3)
[2023-05-29 15:27] LABS: CREATININE,RANDOM URINE 127.6 MG/DL
[2023-05-29 16:29] LABS: IMMUNOGLOBULIN G 1559 MG/DL (650-1600)
[2023-05-29 22:55] LABS: ERYTHROCYTE SEDIMENTATION RATE 34 mm/hr (0-20)
[2023-05-30 16:57] LABS: CRYOGLOBULINS NEGATIVE (NEGATIVE)
[2023-05-31 11:08] LABS: ANTI DS-DNA AB Negative (Negative); COMPLEMENT TOTAL (CH50) > 60 U/mL (>41)
== END ==
LOC: M SFHCRHEU 11:07
PROVIDERS: ATTEND Internal Medicine Rheumatology
DX: M35.01 Sjogren syndrome with keratoconjunctivitis (principal); L93.2 Other local lupus erythematosus; Z79.899 Other long term (current) drug therapy; I73.00 Raynaud's syndrome without gangrene; E55.9 Vitamin D deficiency, unspecified

== ENCOUNTER → 2023-07-05 | Outpatient (CLI) | payer BC | LOC: M PLARAD 08:42 | PROVIDERS: ATTEND Family Medicine | DX: R20.2 Paresthesia of skin (principal) ==

== ENCOUNTER 2023-11-18 09:31 | Emergency (ER) | payer BC ==
[~2023-11-18] VITALS: Ht 154.9 cm; Wt 90.9 kg
[~2023-11-18 09:31] MED LIST changes: +FLUO-365 PO; -FLUO20CA22 PO
[2023-11-18] MEDS ORDERED: ESCITALOPRAM (09:52)
[2023-11-18] MEDS ORDERED: OMEP-173 (09:52)
[2023-11-18] MEDS ORDERED: RIZA5TAB52 (09:52)
[2023-11-18] MEDS: ACETAMINOPHEN 500 MG TAB PO ONE (11:34)
[2023-11-18] MEDS ORDERED: ROLLMIS8 XX (12:05)
[2023-11-18 12:12] VITALS: BP 144/83; TEMP 97.9; O2SAT 96
== END 2023-11-18 12:14 | disposition home or self-care (01) ==
LOC: M ED 09:31
DX: S82.832A Other fracture of upper and lower end of left fibula, initial encounter for closed fracture (principal); W10.8XXA Fall (on) (from) other stairs and steps, initial encounter; Y92.009 Unspecified place in unspecified non-institutional (private) residence as the place of occurrence of the external cause; Y93.01 Activity, walking, marching and hiking; Y99.8 Other external cause status; M32.9 Systemic lupus erythematosus, unspecified; M35.00 Sjogren syndrome, unspecified; Z88.8 Allergy status to other drugs, medicaments and biological substances; Z79.899 Other long term (current) drug therapy

== ENCOUNTER → 2023-11-19 | Outpatient (CLI) | payer BC ==
[~2023-11-19] MED LIST changes: +ESCITALOPRAM; +OMEP-173; +RIZA5TAB52; +ROLLMIS8 XX
== END ==
LOC: M SOG 13:38
PROVIDERS: ATTEND Physician Assistant
DX: M79.605 Pain in left leg (principal); M25.572 Pain in left ankle and joints of left foot; S82.432A Displaced oblique fracture of shaft of left fibula, initial encounter for closed fracture; X58.XXXA Exposure to other specified factors, initial encounter; Y92.9 Unspecified place or not applicable; Y93.9 Activity, unspecified; Y99.9 Unspecified external cause status

== ENCOUNTER → 2023-12-04 | Outpatient (CLI) | payer BC | LOC: M SOG 07:53 | PROVIDERS: ATTEND Physician Assistant | DX: S82.832D Other fracture of upper and lower end of left fibula, subsequent encounter for closed fracture with routine healing (principal); M25.571 Pain in right ankle and joints of right foot ==

== ENCOUNTER 2023-12-18 11:08 | Outpatient (RCR) | payer BC | END 2023-12-22 | LOC: M PT 11:08 | PROVIDERS: ATTEND Physician Assistant | DX: S82.832D Other fracture of upper and lower end of left fibula, subsequent encounter for closed fracture with routine healing (principal) ==

== ENCOUNTER → 2024-01-01 | Outpatient (CLI) | payer BC | LOC: M SOG 07:57 | PROVIDERS: ATTEND Physician Assistant | DX: S82.832D Other fracture of upper and lower end of left fibula, subsequent encounter for closed fracture with routine healing (principal); M25.572 Pain in left ankle and joints of left foot ==

== ENCOUNTER 2024-01-09 12:40 | Outpatient (RCR) | payer BC | END 2024-01-21 | LOC: M PT 12:40 | PROVIDERS: ATTEND Physician Assistant | DX: S82.832D Other fracture of upper and lower end of left fibula, subsequent encounter for closed fracture with routine healing (principal) ==

== ENCOUNTER 2024-02-12 11:28 | Outpatient (RCR) | payer BC | END 2024-02-21 | LOC: M PT 11:28 | PROVIDERS: ATTEND Physician Assistant | DX: S82.832D Other fracture of upper and lower end of left fibula, subsequent encounter for closed fracture with routine healing (principal) ==

== ENCOUNTER → 2024-02-18 | Outpatient (CLI) | payer BC | LOC: M SOG 07:26 | PROVIDERS: ATTEND Physician Assistant | DX: M25.572 Pain in left ankle and joints of left foot (principal); S82.62XD Displaced fracture of lateral malleolus of left fibula, subsequent encounter for closed fracture with routine healing ==

== ENCOUNTER 2024-03-14 13:27 | Outpatient (RCR) | payer BC | END 2024-03-22 | LOC: M PT 13:27 | PROVIDERS: ATTEND Physician Assistant | DX: S82.832D Other fracture of upper and lower end of left fibula, subsequent encounter for closed fracture with routine healing (principal) ==

== ENCOUNTER → 2024-08-19 | Outpatient (CLI) | payer BC ==
[~2024-08-19] MED LIST changes: +FLUO1TAB4 PO; -FLUO20TA28 PO; +TOPI-257 PO; -TOPI100T9 PO
== END ==
LOC: M WHC 12:17
PROVIDERS: ATTEND Family Medicine
DX: Z12.31 Encounter for screening mammogram for malignant neoplasm of breast (principal); Z53.9 Procedure and treatment not carried out, unspecified reason

== ENCOUNTER → 2025-01-12 | Outpatient (REF) | payer BC ==
[2025-01-12 18:51] LABS: ALT/SGPT 20 U/L (7.0-40); AST/SGOT 17 U/L (<34); CALCIUM LEVEL 8.5 MG/DL (8.5-10.1); CARBON DIOXIDE LEVEL 22 MMOL/L (20-31); CHLORIDE LEVEL 111 MMOL/L (98-107); CREATININE FOR GFR 0.79 MG/DL (0.55-1.30); GLOMERULAR FILTRATION RATE > 90.0 (>58); POTASSIUM SERUM 4.2 MMOL/L (3.5-5.1); SODIUM LEVEL 138 MMOL/L (136-145)
[2025-01-12 18:52] LABS: FREE T4 0.96 NG/DL (0.89-1.76)
[2025-01-12 18:54] LABS: BASO # 0.0 10^3/uL (0.0-0.2); BASO % 0.6 % (0.0-1.0); EOS # 0.1 10^3/uL (0.0-0.5); EOS % 1.1 % (0.0-3.0); LYMPH # 1.9 10^3/uL (1.5-5.0); LYMPH % 29.2 % (24.0-44.0); MONO # 0.6 10^3/uL (0.0-0.8); MONO % 9.4 % (2.0-8.0); NEUTROPHILS # 3.8 10^3/uL (1.5-8.5); NEUTROPHILS % 59.5 % (36.0-66.0); PLATELET COUNT, AUTOMATED 267 10^3/uL (150-450)
== END ==
LOC: M SFHCLERA 10:30
PROVIDERS: ATTEND Nurse Practitioner Family
DX: Z00.00 Encounter for general adult medical examination without abnormal findings (principal); M32.9 Systemic lupus erythematosus, unspecified